=== PATIENT | male | born 1945 | race Caucasian/White ===

== ENCOUNTER 2017-09-19 16:23 | Inpatient (IN) | payer MEDICARE ==
[~2017-09-19] VITALS: Ht 185.4 cm; Wt 62.1 kg
--- NOTE | ~2017-09-19 | PN ---
PATIENT:SUZETTE QUIÑONES MEDICAL RECORD: [id number] [facility] DATE: 09/19/17 PROGRESS NOTE DATE OF SERVICE: 10/09/2017 SUBJECTIVE: This is a 72-year-old male who was admitted for increasing shortness of breath, felt to have a moderately large right pleural effusions. There is also some infiltrate. The patient's breathing has improved. He has no fever or chills. Gram stain pleural fluid is negative. LABORATORY DATA: CBC shows white count of 7.2, hemoglobin of 15. Chemistries remarkable for potassium 3.9. Chest x-ray shows significant improvement. No right pleural effusions. There is patchy and linear bibasilar opacities, which is mostly atelectasis. There is mild interstitial prominence. ASSESSMENT: 1. Right parapneumonic effusion. 2. Pneumonia. 3. . This is probably not from pancreatitis or carcinoma. There is no abdominal pain. This may be a benign process. PLAN: Continue antibiotics, total of 5-7 days on discharge from pulmonary standpoint. TRANSINT:[id number] Voice Confirmation ID: [id number] DOCUMENT ID: [id number] PAULA GAVIN at 0831 CC: [id number] DICTATION DATE: 10/09/17 1723 CORPORATE TRAVEL EXPERT: 10/10/17 0032 ADM IN [place] [address] [place] [address]
--- NOTE | ~2017-09-19 | EC ---
PATIENT:SUZETTE QUIÑONES DATE OF SERVICE: 09/19/17 SEX: M MEDICAL RECORD: [id number] DATE OF : [birth year] LOCATION:D.M2 D.210 AGE OF PATIENT: 72 ADMISSION DATE: 09/19/17 REFERRING PHYSICIAN: INTERPRETING PHYSICIAN: JULIET GILLIS MD ECHOCARDIOGRAM REPORT ECHO CHARGES 4 ECHO COMPLETE Date: 09/30 CLINICAL DIAGNOSIS: FLUID OVERLOAD ECHOCARDIOGRAPHIC MEASUREMENTS (adult normal given) AC root (d.<3.7cm) 2.9 cm LV Septum d (<1.2 cm> 1.2 cm Valve Excursion 1.5 cm LV Septum (systole) 1.5 cm Left Atria (s.<4.0cm> 3.5 cm LVPW d(<1.2cm) 1.2 cm RV (d.<2.3cm) 2.4 cm LVPW (sytole) 1.8 cm LV diastole(<5.6CM) 3.9 cm MV E-F(>70mm/sec) cm LV systole 2.5 cm LVOT Diameter 1.7 cm MV exc.(>10mm) 1.4 cm Est.ejection fraction (50-75%) % DOPPLER: LVIT cm/sec A 55.0 cm/sec E 51.0 cm/sec LA cm/sec RVSP 15.0 mmHg LVOT 78.0 cm/sec AOP1/2T m/s Asc. Ao 112 cm/sec RVOT 48.0 cm/sec RA cm/sec PA 69.0 cm/sec AV Gradient Peak 5.0 mmHg AV Mean 2.3 mmHg AV Area 1.6 cm MV Gradient Peak 3.3 mmHg MV Mean 0.97 mmHg MV Area cm COMMENTS: Senior Finance Manager: 1 PADMINI RATLIFF Social Worker Psychiatric: 2 Dr. Tobar TAPE# PACS Pericardial Effusion Y DATE OF SERVICE: 09/30/2017 PROCEDURE: Echocardiogram. FINDINGS: 1. Left ventricular chamber size is within normal limits. Left ventricular systolic function is normal. Overall ejection fraction estimated at 50%. 2. Left atrium, right atrium, and right ventricle chamber sizes are within normal limits. 3. Valvular structures have normal structure and motion. ECHOCARDIOGRAM REPORT [id number] SUZETTE QUIÑONES 4. Doppler interrogation only reveals trace mitral regurgitation, trace tricuspid regurgitation, no other valvular insufficiency or stenosis and pulmonary systolic pressure is normal estimated at 15 mmHg. 5. No evidence of pericardial effusion or left ventricular thrombus. TRANSINT:[id number] Voice Confirmation ID: [id number] DOCUMENT ID: [id number] JULIET GILLIS MD at 1713 CC: [id number] DICTATION DATE: 09/30/17 1207 PRINT OPERATOR: 09/30/17 1220 ADM IN [place] [id number] [place] [id number]
--- NOTE | ~2017-09-19 | PN ---
PATIENT:SUZETTE QUIÑONES MEDICAL RECORD: [id number] LOCATION:D. D.210 ADMISSION DATE: 09/19/17 PROGRESS NOTE DATE OF SERVICE: 10/08/2017 This is a 72-year-old man who has had a history of smoking and chronic obstructive pulmonary disease. This patient was admitted with increasing shortness of breath and was noted to have right pleural effusion as well as left infiltrates. The patient had thoracentesis today and it turned over 2 liters. The patient feels improved. There is no coughing. There is no hemoptysis. There is no fever or chills. The patient has been on antibiotics as well as bronchodilators. PHYSICAL EXAMINATION: GENERAL: Physical exam reveals an elderly man who is in no acute distress. VITAL SIGNS: Temperature 98.1, heart rate of 98, respiratory rate of 20, blood pressure 119/67. SHEENT: Unremarkable. NECK: Supple. There is adenopathy. Trachea is midline. There is no stridor. CHEST: There are some mild crackles, on the right. There is no chest wall tenderness. HEART: Exam shows no jugular venous distention, no murmur or gallops. ABDOMEN: Benign. EXTREMITIES: No clubbing, cyanosis or edema. LABORATORY DATA: White count 6.8, hemoglobin 14.4, and platelet count was 365. Arterial blood gases pH 7.36, pCO2 of 48, pO2 is 77, on 5 liters. Chemistry is remarkable for potassium 5, creatinine is 0.9. CT scan shows emphysematous lungs with atelectasis and has mucus in the bronchial tubes. ASSESSMENT: 1. Right pleural effusion, most likely parapneumonic effusion. 2. Pneumonia, community acquired. 3. Chronic obstructive pulmonary disease. PLAN: 1. Repeat chest x-ray in the morning. 2. Continue bronchodilators. 3. Mucolytics. 4. Encourage cough and expectoration. TRANSINT:[id number] Voice Confirmation ID: [id number] DOCUMENT ID: [id number] PROGRESS NOTE [id number] SUZETTE QUIÑONES PAULA GAVIN at 0831 CC: [id number] DICTATION DATE: 10/08/172024 IRRIGATOR SPRINKLING SYSTEM: 10/09/17 0106 ADM IN [place] [id number] [place] [address]
--- NOTE | ~2017-09-19 | PN ---
PATIENT:SUZETTE QUIÑONES MEDICAL RECORD: [id number] LOCATION:[facility] D.210 ADMISSION DATE: 09/19/17 PROGRESS NOTE DATE OF SERVICE: 10/07/2017 HISTORY OF PRESENT ILLNESS: This is a 72-year-old male who has a history of COPD, continues to smoke. The patient has had weight loss in the past weeks. He has also been weak. He was noted to have some shortness of breath, was seen in the Emergency Room and signed AMA. The patient returned with shortness of breath, was noted to have moderate right pleural effusion. Thoracentesis was done and there was no change. The patient has been coughing up some yellowish green sputum. Denies any fever or chills. PAST MEDICAL HISTORY: Includes hypertension, peripheral neuropathy, BPH, nicotine abuse, and medical noncompliance. The patient denies any chest pain, denies any shortness of breath. There is no fever or chills. PHYSICAL EXAMINATION: GENERAL: Reveals an elderly man who appears to be mildly cachectic. VITAL SIGNS: Temperature 97.9, heart rate 86, respiratory rate of 18, blood pressure 128/78, saturation 95%. SHEENT: The patient is normocephalic. The patient has poor dentition. NECK: Supple. Trachea is midline. CHEST: Reveals moderate coarse crackles on the left. Dullness in the right bases. HEART: Shows no jugular venous distention. ABDOMEN: Benign. EXTREMITIES: No clubbing, cyanosis or edema. LABORATORY DATA: Showed white count of 7.8, hemoglobin 14.4, platelet count is 289,000. Chemistries remarkable for potassium of 3.2, carbon dioxide 34. Albumin is 2.2. Lipase is 1789. Chest x-ray showed moderate pleural effusion suggestive of loculated pleural effusion. Pleural fluid Gram stain is negative for bacteria, few white cells. ASSESSMENT: 1. Right pleural effusion, most likely loculated. The patient may need a chest tube and pleural thrombolysis. 2. Chronic obstructive pulmonary disease, severe. Continue bronchodilators and medicine. 3. Elevated pancreatic enzymes. The patient does not appear to have any abdominal symptoms. This will need followed up. RECOMMENDATIONS: 1. Continue bronchodilators. 2. Small caliber chest tube insertion and thrombolysis. Streptokinase and DNase twice a day. Cessation of smoking. TRANSINT:[id number] Voice Confirmation ID: [id number] DOCUMENT ID: [id number] PROGRESS NOTE [id number] SUZETTE QUIÑONES AUGUSTINE K at 0831 CC: [id number] DICTATION DATE: 10/07/171908 ENVIRONMENTAL SERVICES AIDE: 10/08/17 0206 ADM IN [place] [address] [place] [address]
--- NOTE | ~2017-09-19 | EC ---
PATIENT:SUZETTE QUIÑONES DATE OF SERVICE: 09/19/17 SEX: M MEDICAL RECORD: [id number] DATE OF : 47 LOCATION:D.M2 D.210 AGE OF PATIENT: 72 ADMISSION DATE: 09/19/17 REFERRING PHYSICIAN: INTERPRETING PHYSICIAN: JULIET COLEMAN MD ECHOCARDIOGRAM REPORT ECHO CHARGES 5 ECHO LIMITED Date: 09/20 CLINICAL DIAGNOSIS: CHF ECHOCARDIOGRAPHIC MEASUREMENTS (adult normal given) AC root (d.<3.7cm) cm LV Septum d (<1.2 cm> 1.7 cm Valve Excursion cm LV Septum (systole) 1.8 cm Left Atria (s.<4.0cm> cm LVPW d(<1.2cm) 1.6 cm RV (d.<2.3cm) 2.8 cm LVPW (sytole) 1.8 cm LV diastole(<5.6CM) 4.4 cm MV E-F(>70mm/sec) cm LV systole 2.9 cm LVOT Diameter cm MV exc.(>10mm) 1.4 cm Est.ejection fraction (50-75%) % DOPPLER: LVIT cm/sec A 102 cm/sec E 75.0 cm/sec LA cm/sec RVSP mmHg LVOT cm/sec AOP1/2T m/s Asc. Ao cm/sec RVOT cm/sec RA cm/sec PA cm/sec AV Gradient Peak mmHg AV Mean mmHg AV Area cm MV Gradient Peak mmHg MV Mean mmHg MV Area cm COMMENTS: Negative Notcher: Dilip RUSSELL Guest Services Representative: Starla Coleman TAPE# PACS Pericardial Effusion N DATE OF SERVICE: 09/20/2017 PROCEDURE: Echocardiogram FINDINGS: 1. Left ventricle chamber size is within normal limits. Left ventricular systolic function is normal. Overall ejection fraction is estimated at 60%. 2. Left atrium, right atrium, and right ventricle chamber sizes are within normal limits. 3. Valvular structures have normal structure and motion. ECHOCARDIOGRAM REPORT [id number] SUZETTE QUIÑONES 4. Doppler interrogation reveals no significant valvular insufficiency or stenosis. 5. No evidence of pericardial effusion or left ventricular thrombus. TRANSINT:[id number] Voice Confirmation ID: [id number] DOCUMENT ID: [id number] JULIET COLEMAN MD at 1325 CC: [id number] DICTATION DATE: 09/20/17 1637 CAPTION WRITER: 09/20/17 1825 ADM IN [facility] [address] [place] [id number]
[2017-09-19] MEDS ORDERED: NEURONTIN 300300 MG (16:29)
[2017-09-19] MEDS ORDERED: TOPROL XL50 MG (16:30)
[2017-09-19 16:50] VITALS: BP 135/86
[2017-09-19 17:00] VITALS: BP 144/80
[2017-09-19 17:18] LABS: HEMATOCRIT 54.7 % (42.0-54.0); HEMOGLOBIN 18.6 g/dL (13.5-17.5); LYMPHOCYTES 17.8 % (15-50); MCH 30.3 pg (26.0-34.0); MCV 89.2 fL (80.0-100.0); MEAN PLATELET VOLUME 8.7 fL (7.4-10.4); NEUTROPHILS 75.1 % (40-80); PLATELET COUNT 323 10x3/uL (130-400); RBC 6.13 10x6/uL (4.20-6.10); RDW 13.3 % (11.5-14.5)
[2017-09-19 17:30] VITALS: BP 133/77
[2017-09-19 17:31] LABS: APTT 32.4 SECONDS (22.8-39.4)
[2017-09-19 17:32] LABS: D-DIMER-QUANTITATIVE 0.83 ug/mLFEU (0.20-0.54); INR 0.96 (0.85-1.17); PROTIME 12.4 SECONDS (11.6-15.0)
[2017-09-19 17:41] LABS: ALBUMIN 3.4 g/dL (3.4-5.0); ALKALINE PHOSPHATASE 138 U/L (46-116); ALT (SGPT) 22 U/L (10-68); BILIRUBIN - TOTAL 0.63 mg/dL (0.2-1.3); CALC OSMOLALITY 277 mosm/kg (275-300); CHLORIDE - SERUM 100 mmol/L (98-107); CREATININE - SERUM 1.4 mg/dL (0.6-1.3); GLUCOSE 120 mg/dL (74-106); POTASSIUM - SERUM 4.1 mmol/L (3.5-5.1); PROTEIN - SERUM 8.1 g/dL (6.4-8.2); SODIUM 138 mmol/L (136-145); UREA NITROGEN 16 mg/dL (7-18); eGFR NON AFRICAN AMERICAN 53 mL/min (90-120)
[2017-09-19 17:56] LABS: CKMB 1.7 U/L (0.0-3.6); CREATINE KINASE 63 UL (21-232); PRO BNP 487 pg/mL (0-125)
[2017-09-19 17:58] LABS: TROPONIN-I < 0.017 ng/mL (0.000-0.060)
[2017-09-19 18:15] VITALS: BP 144/80
[2017-09-19 19:00] VITALS: BP 128/78
[2017-09-19] MEDS ORDERED: OMEPRAZOLE20 M1 PO (19:45)
[2017-09-19] MEDS ORDERED: REQUIP0.25 MG PO (19:45)
[2017-09-19] MEDS ORDERED: PRAVACHOL20 MG PO (19:45)
[2017-09-19] MEDS ORDERED: METOPROLOL TART50 MG PO (19:46)
[2017-09-19] MEDS ORDERED: HYZAAR 50-12.51 TAB PO (19:46)
[2017-09-19] MEDS ORDERED: PROSCAR5 MG PO (19:47)
[2017-09-19] MEDS ORDERED: BAYER CHEWABLE81 MG PO (19:47)
[2017-09-19] MEDS ORDERED: NIFEDIPINE ER60 MG PO (19:47)
[2017-09-19] MEDS ORDERED: NEURONTIN600 MG PO (19:47)
[2017-09-19 21:39] VITALS: BP 112/79
[2017-09-20 01:29] VITALS: BP 122/74
[2017-09-20 08:03] VITALS: BP 146/77
[2017-09-20 11:55] VITALS: BP 148/87
[2017-09-20 12:16] VITALS: BMI 18.7
[2017-09-20 15:39] VITALS: BP 157/94
[2017-09-20 20:31] VITALS: BP 146/88
[2017-09-21 01:10] VITALS: BP 142/86
[2017-09-21 04:00] VITALS: BP 139/88
[2017-09-21 05:05] LABS: PRE-ALBUMIN 16.3 mg/dL (18.0-35.7)
[2017-09-21 05:07] LABS: PROTEIN - SERUM 5.3 g/dL (6.4-8.2)
[2017-09-21 08:05] VITALS: BP 127/77
[2017-09-21 09:31] LABS: BASOPHILS 0.2 % (0-2); EOSINOPHILS 0.8 % (0-7); HEMATOCRIT 48.3 % (42.0-54.0); HEMOGLOBIN 16.4 g/dL (13.5-17.5); IMMATURE GRANULOCYTES 0.4 % (0-5); MCH 30.9 pg (26.0-34.0); MCV 91.1 fL (80.0-100.0); MEAN PLATELET VOLUME 9.8 fL (7.4-10.4); MONOCYTES 6.1 % (2-11); NEUTROPHILS 82.5 % (40-80); RDW 13.4 % (11.5-14.5); WBC 9.5 10x3/uL (4.8-10.8)
[2017-09-21 09:35] LABS: PLATELET COUNT 243 10x3/uL (130-400)
[2017-09-21 09:50] LABS: ALBUMIN 2.2 g/dL (3.4-5.0); ALKALINE PHOSPHATASE 70 U/L (46-116); ALT (SGPT) 13 U/L (10-68); BILIRUBIN - TOTAL 0.34 mg/dL (0.2-1.3); CALC OSMOLALITY 282 mosm/kg (275-300); CARBON DIOXIDE 21.4 mmol/L (21.0-32.0); CHLORIDE - SERUM 110 mmol/L (98-107); CREATININE - SERUM 0.8 mg/dL (0.6-1.3); GLUCOSE 84 mg/dL (74-106); LIPASE 3683 U/L (73-393); POTASSIUM - SERUM 3.1 mmol/L (3.5-5.1); PROTEIN - SERUM 4.6 g/dL (6.4-8.2); SODIUM 142 mmol/L (136-145); UREA NITROGEN 14 mg/dL (7-18); eGFR NON AFRICAN AMERICAN > 90 mL/min (90-120)
[2017-09-21 09:55] LABS: AMYLASE - SERUM 713 U/L (25-115)
[2017-09-21 11:41] VITALS: BP 113/73
[2017-09-21 13:40] VITALS: Ht 185.4 cm; Wt 62.1 kg
[2017-09-21 16:14] VITALS: BP 100/64
[2017-09-21 21:26] VITALS: BP 101/60
[2017-09-22] VITALS (13 sets, daily range): BP systolic 92–112; BP diastolic 52–66
[2017-09-22 05:23] LABS: BASOPHILS 0.3 % (0-2); EOSINOPHILS 2.4 % (0-7); HEMATOCRIT 46.7 % (42.0-54.0); HEMOGLOBIN 15.7 g/dL (13.5-17.5); IMMATURE GRANULOCYTES 0.5 % (0-5); LYMPHOCYTES 12.9 % (15-50); MCH 30.8 pg (26.0-34.0); MCHC 33.6 g/dL (31.0-37.0); MCV 91.6 fL (80.0-100.0); MEAN PLATELET VOLUME 9.5 fL (7.4-10.4); MONOCYTES 8.1 % (2-11); NEUTROPHILS 75.8 % (40-80); PLATELET COUNT 229 10x3/uL (130-400); RDW 13.6 % (11.5-14.5); WBC 11.1 10x3/uL (4.8-10.8)
[2017-09-22 05:33] LABS: APTT 30.9 SECONDS (22.8-39.4); INR 1.2 (0.85-1.17); PROTIME 14.8 SECONDS (11.6-15.0)
[2017-09-22 05:43] LABS: ALBUMIN 2.3 g/dL (3.4-5.0); ANION GAP 13.8 mmol/L (8-16); BILIRUBIN - TOTAL 0.59 mg/dL (0.2-1.3); CALCIUM 8.4 mg/dL (8.5-10.1); CARBON DIOXIDE 24.6 mmol/L (21.0-32.0); MAGNESIUM - SERUM 1.8 mg/dL (1.8-2.4); PHOSPHOROUS 3.5 mg/dL (2.5-4.9); POTASSIUM - SERUM 3.4 mmol/L (3.5-5.1)
[2017-09-22 05:54] LABS: CREATININE - SERUM 1.1 mg/dL (0.6-1.3); PROTEIN - SERUM 5.9 g/dL (6.4-8.2)
[2017-09-22 13:56] LABS: PROTEIN - BODY FLUID 4.4 G/DL
[2017-09-22 14:31] LABS: MACROPHAGES BF 63 %; MESOTHELIALS BF 4 %; NEUT - BF 5 %
[2017-09-23 00:41] VITALS: BP 112/68
[2017-09-23 03:28] LABS: BASOPHILS 0.3 % (0-2); HEMATOCRIT 43.5 % (42.0-54.0); HEMOGLOBIN 14.3 g/dL (13.5-17.5); IMMATURE GRANULOCYTES 0.4 % (0-5); LYMPHOCYTES 12.8 % (15-50); MCH 30.4 pg (26.0-34.0); MCHC 32.9 g/dL (31.0-37.0); MCV 92.6 fL (80.0-100.0); MEAN PLATELET VOLUME 9.6 fL (7.4-10.4); MONOCYTES 8.8 % (2-11); NEUTROPHILS 74.7 % (40-80); PLATELET COUNT 193 10x3/uL (130-400); RDW 13.7 % (11.5-14.5)
[2017-09-23 04:09] LABS: ALBUMIN 2.1 g/dL (3.4-5.0); ANION GAP 11.4 mmol/L (8-16); BILIRUBIN - TOTAL 0.42 mg/dL (0.2-1.3); CALCIUM 8.1 mg/dL (8.5-10.1); CARBON DIOXIDE 23.9 mmol/L (21.0-32.0); CREATININE - SERUM 1.1 mg/dL (0.6-1.3); POTASSIUM - SERUM 3.3 mmol/L (3.5-5.1); PROTEIN - SERUM 5.5 g/dL (6.4-8.2)
[2017-09-23 05:34] VITALS: BP 111/60
[2017-09-23 07:56] VITALS: BP 125/71
[2017-09-23 10:36] VITALS: BP 128/66
[2017-09-23 15:18] VITALS: BP 131/72
[2017-09-23 20:00] VITALS: BP 143/78
[2017-09-23 23:28] LABS: APPEARANCE CLEAR (CLEAR); BILIRUBIN NEGATIVE (NEGATIVE); COLOR DK YELLOW (YELLOW); GLUCOSE NEGATIVE (NEGATIVE); KETONE NEGATIVE (NEGATIVE); NITRITE NEGATIVE (NEGATIVE); PROTEIN 1+ mg/dL (NEGATIVE); SPECIFIC GRAVITY 1.015 (1.005-1.020); UROBILINOGEN NORMAL (NORMAL)
[2017-09-23 23:29] LABS: BACTERIA NONE SEEN /hpf (NONE SEEN); EPITHELIAL CELLS 0-5 /hpf (0-5); RED CELLS - URINE 0-5 /hpf (0-5); WHITE CELLS - URINE 0-5 /hpf (0-5)
[2017-09-24 04:00] VITALS: BP 116/62
[2017-09-24 06:46] LABS: BASOPHILS 0.2 % (0-2); EOSINOPHILS 3.5 % (0-7); HEMATOCRIT 43.9 % (42.0-54.0); HEMOGLOBIN 14.8 g/dL (13.5-17.5); IMMATURE GRANULOCYTES 0.3 % (0-5); LYMPHOCYTES 9.5 % (15-50); MCH 31.4 pg (26.0-34.0); MCHC 33.7 g/dL (31.0-37.0); MCV 93.2 fL (80.0-100.0); MEAN PLATELET VOLUME 9.9 fL (7.4-10.4); MONOCYTES 7.7 % (2-11); NEUTROPHILS 78.8 % (40-80); PLATELET COUNT 216 10x3/uL (130-400); RBC 4.71 10x6/uL (4.20-6.10); RDW 13.7 % (11.5-14.5); WBC 9.9 10x3/uL (4.8-10.8)
[2017-09-24 07:06] LABS: ALBUMIN 2.1 g/dL (3.4-5.0); ALKALINE PHOSPHATASE 78 U/L (46-116); BILIRUBIN - TOTAL 0.64 mg/dL (0.2-1.3); CALCIUM 8.5 mg/dL (8.5-10.1); CARBON DIOXIDE 26.3 mmol/L (21.0-32.0); CHLORIDE - SERUM 107 mmol/L (98-107); PROTEIN - SERUM 5.7 g/dL (6.4-8.2); SODIUM 140 mmol/L (136-145); eGFR NON AFRICAN AMERICAN 78 mL/min (90-120)
[2017-09-24 07:10] LABS: ALT (SGPT) 20 U/L (10-68); CALC OSMOLALITY 278 mosm/kg (275-300); GLUCOSE 97 mg/dL (74-106); LIPASE 2681 U/L (73-393); UREA NITROGEN 12 mg/dL (7-18)
[2017-09-24 08:34] VITALS: BP 109/72
[2017-09-24 12:38] VITALS: BP 119/67
[2017-09-24 16:07] VITALS: BP 114/70
[2017-09-24 16:23] LABS: AFB SPECIMEN PROCESSING Not Indicated (())
[2017-09-24 20:00] VITALS: BP 140/74
[2017-09-25] VITALS: BP 123/67
[2017-09-25 04:00] VITALS: BP 118/68
[2017-09-25 06:35] LABS: BASOPHILS 0.2 % (0-2); EOSINOPHILS 3.5 % (0-7); HEMATOCRIT 43.6 % (42.0-54.0); HEMOGLOBIN 14.5 g/dL (13.5-17.5); IMMATURE GRANULOCYTES 0.4 % (0-5); LYMPHOCYTES 9.1 % (15-50); MCH 31.1 pg (26.0-34.0); MCHC 33.3 g/dL (31.0-37.0); MCV 93.6 fL (80.0-100.0); MONOCYTES 8.1 % (2-11); NEUTROPHILS 78.7 % (40-80); PLATELET COUNT 257 10x3/uL (130-400); RBC 4.66 10x6/uL (4.20-6.10)
[2017-09-25 07:36] LABS: ALBUMIN 2.1 g/dL (3.4-5.0); ALKALINE PHOSPHATASE 88 U/L (46-116); ALT (SGPT) 20 U/L (10-68); CALC OSMOLALITY 278 mosm/kg (275-300); CALCIUM 8.7 mg/dL (8.5-10.1); CARBON DIOXIDE 26.6 mmol/L (21.0-32.0); CHLORIDE - SERUM 107 mmol/L (98-107); CREATININE - SERUM 0.9 mg/dL (0.6-1.3); GLUCOSE 125 mg/dL (74-106); LIPASE 4421 U/L (73-393); POTASSIUM - SERUM 4.2 mmol/L (3.5-5.1); PROTEIN - SERUM 5.7 g/dL (6.4-8.2); SODIUM 140 mmol/L (136-145); UREA NITROGEN 10 mg/dL (7-18); eGFR NON AFRICAN AMERICAN 88 mL/min (90-120)
[2017-09-25 08:36] VITALS: BP 123/65
[2017-09-25 12:39] VITALS: BP 133/77
[2017-09-25 13:21] LABS: ANA REFLEX - DIRECT Negative (Negative)
[2017-09-25 15:31] LABS: FUNGUS STAIN Final report (())
[2017-09-25 16:39] VITALS: BP 136/86
[2017-09-25 20:00] VITALS: BP 148/86
[2017-09-26] VITALS: BP 129/75
[2017-09-26 04:00] VITALS: BP 136/76
[2017-09-26 06:01] LABS: BASOPHILS 0.2 % (0-2); EOSINOPHILS 4.3 % (0-7); HEMATOCRIT 44.4 % (42.0-54.0); HEMOGLOBIN 14.7 g/dL (13.5-17.5); IMMATURE GRANULOCYTES 0.4 % (0-5); LYMPHOCYTES 10.3 % (15-50); MCH 30.9 pg (26.0-34.0); MCHC 33.1 g/dL (31.0-37.0); MCV 93.3 fL (80.0-100.0); MEAN PLATELET VOLUME 9.5 fL (7.4-10.4); MONOCYTES 9.2 % (2-11); NEUTROPHILS 75.6 % (40-80); PLATELET COUNT 250 10x3/uL (130-400); RBC 4.76 10x6/uL (4.20-6.10); RDW 13.8 % (11.5-14.5); WBC 9.7 10x3/uL (4.8-10.8)
[2017-09-26 06:28] LABS: ALBUMIN 2.1 g/dL (3.4-5.0); ALKALINE PHOSPHATASE 99 U/L (46-116); ALT (SGPT) 19 U/L (10-68); BILIRUBIN - TOTAL 0.84 mg/dL (0.2-1.3); CALC OSMOLALITY 277 mosm/kg (275-300); CALCIUM 9.1 mg/dL (8.5-10.1); CARBON DIOXIDE 27.8 mmol/L (21.0-32.0); CHLORIDE - SERUM 105 mmol/L (98-107); CREATININE - SERUM 0.8 mg/dL (0.6-1.3); GLUCOSE 102 mg/dL (74-106); PROTEIN - SERUM 6.1 g/dL (6.4-8.2); SODIUM 140 mmol/L (136-145); UREA NITROGEN 10 mg/dL (7-18); eGFR NON AFRICAN AMERICAN > 90 mL/min (90-120)
[2017-09-26 06:31] LABS: LIPASE 4059 U/L (73-393)
[2017-09-26 08:17] VITALS: BP 157/90
[2017-09-26 11:56] VITALS: BP 158/93
[2017-09-26 15:33] VITALS: BP 155/85
[2017-09-26 21:09] VITALS: BP 139/81
[2017-09-27 01:28] VITALS: BP 145/89
[2017-09-27 05:19] LABS: BASOPHILS 0.2 % (0-2); EOSINOPHILS 3.4 % (0-7); HEMATOCRIT 45.4 % (42.0-54.0); HEMOGLOBIN 15.1 g/dL (13.5-17.5); IMMATURE GRANULOCYTES 0.7 % (0-5); LYMPHOCYTES 9.6 % (15-50); MCH 30.6 pg (26.0-34.0); MCHC 33.3 g/dL (31.0-37.0); MCV 91.9 fL (80.0-100.0); MEAN PLATELET VOLUME 9.5 fL (7.4-10.4); NEUTROPHILS 76.1 % (40-80); PLATELET COUNT 264 10x3/uL (130-400); RBC 4.94 10x6/uL (4.20-6.10); RDW 13.5 % (11.5-14.5); WBC 9.8 10x3/uL (4.8-10.8)
[2017-09-27 05:34] LABS: ALBUMIN 2.1 g/dL (3.4-5.0); ALKALINE PHOSPHATASE 93 U/L (46-116); ALT (SGPT) 15 U/L (10-68); BILIRUBIN - TOTAL 0.63 mg/dL (0.2-1.3); CALC OSMOLALITY 271 mosm/kg (275-300); CALCIUM 9.2 mg/dL (8.5-10.1); CHLORIDE - SERUM 104 mmol/L (98-107); CREATININE - SERUM 0.8 mg/dL (0.6-1.3); GLUCOSE 111 mg/dL (74-106); POTASSIUM - SERUM 3.7 mmol/L (3.5-5.1); PROTEIN - SERUM 6.3 g/dL (6.4-8.2); SODIUM 136 mmol/L (136-145); UREA NITROGEN 10 mg/dL (7-18); eGFR NON AFRICAN AMERICAN > 90 mL/min (90-120)
[2017-09-27 05:35] LABS: LIPASE 3195 U/L (73-393)
[2017-09-27 05:39] VITALS: BP 148/88
[2017-09-27 08:16] VITALS: BP 154/88
[2017-09-27 11:25] VITALS: BP 133/73
[2017-09-27 15:31] VITALS: BP 122/76
[2017-09-27 20:00] VITALS: BP 131/70
[2017-09-28 04:00] VITALS: BP 128/68
[2017-09-28 08:57] VITALS: BP 132/71
[2017-09-28 11:51] VITALS: BP 146/89
[2017-09-28 15:51] VITALS: BP 150/95
[2017-09-28 20:00] VITALS: BP 155/94
[2017-09-29 04:00] VITALS: BP 153/89
[2017-09-29 08:55] VITALS: BP 140/87
[2017-09-29 10:23] LABS: BASOPHILS 0.5 % (0-2); EOSINOPHILS 3.6 % (0-7); HEMATOCRIT 44.2 % (42.0-54.0); HEMOGLOBIN 14.8 g/dL (13.5-17.5); IMMATURE GRANULOCYTES 0.8 % (0-5); LYMPHOCYTES 8.2 % (15-50); MCH 30.9 pg (26.0-34.0); MCHC 33.5 g/dL (31.0-37.0); MCV 92.3 fL (80.0-100.0); MEAN PLATELET VOLUME 9.8 fL (7.4-10.4); MONOCYTES 12.6 % (2-11); NEUTROPHILS 74.3 % (40-80); PLATELET COUNT 295 10x3/uL (130-400); RBC 4.79 10x6/uL (4.20-6.10); RDW 13.3 % (11.5-14.5); WBC 10.1 10x3/uL (4.8-10.8)
[2017-09-29 10:35] LABS: ALBUMIN 2.1 g/dL (3.4-5.0); ALKALINE PHOSPHATASE 105 U/L (46-116); ALT (SGPT) 16 U/L (10-68); BILIRUBIN - TOTAL 0.45 mg/dL (0.2-1.3); CALC OSMOLALITY 271 mosm/kg (275-300); CALCIUM 9.4 mg/dL (8.5-10.1); CARBON DIOXIDE 20.2 mmol/L (21.0-32.0); CHLORIDE - SERUM 104 mmol/L (98-107); CREATININE - SERUM 0.8 mg/dL (0.6-1.3); GLUCOSE 87 mg/dL (74-106); POTASSIUM - SERUM 3.9 mmol/L (3.5-5.1); PROTEIN - SERUM 6.4 g/dL (6.4-8.2); SODIUM 137 mmol/L (136-145); UREA NITROGEN 11 mg/dL (7-18); eGFR NON AFRICAN AMERICAN > 90 mL/min (90-120)
[2017-09-29 16:02] VITALS: BP 153/84
[2017-09-29 20:15] VITALS: BP 142/77
[2017-09-30 00:05] VITALS: BP 129/72
[2017-09-30 05:09] LABS: BASOPHILS 0.5 % (0-2); EOSINOPHILS 4.7 % (0-7); HEMATOCRIT 44.4 % (42.0-54.0); HEMOGLOBIN 15.1 g/dL (13.5-17.5); IMMATURE GRANULOCYTES 1.6 % (0-5); LYMPHOCYTES 12.9 % (15-50); MCH 30.9 pg (26.0-34.0); MEAN PLATELET VOLUME 9.4 fL (7.4-10.4); MONOCYTES 12.9 % (2-11); NEUTROPHILS 67.4 % (40-80); PLATELET COUNT 274 10x3/uL (130-400); RBC 4.88 10x6/uL (4.20-6.10); RDW 13.4 % (11.5-14.5); WBC 8.2 10x3/uL (4.8-10.8)
[2017-09-30 05:25] VITALS: BP 133/72
[2017-09-30 05:45] LABS: CALC OSMOLALITY 273 mosm/kg (275-300); CALCIUM 9.7 mg/dL (8.5-10.1); CARBON DIOXIDE 26.3 mmol/L (21.0-32.0); CHLORIDE - SERUM 103 mmol/L (98-107); CREATININE - SERUM 0.7 mg/dL (0.6-1.3); GLUCOSE 89 mg/dL (74-106); LIPASE 2106 U/L (73-393); POTASSIUM - SERUM 3.6 mmol/L (3.5-5.1); SODIUM 137 mmol/L (136-145); UREA NITROGEN 14 mg/dL (7-18); eGFR NON AFRICAN AMERICAN > 90 mL/min (90-120)
[2017-09-30 08:46] VITALS: BP 122/80
[2017-09-30 12:06] VITALS: BP 126/84
[2017-09-30 16:20] VITALS: BP 124/79
[2017-09-30 20:05] VITALS: BP 154/97
[2017-10-01 01:29] VITALS: BP 144/84
[2017-10-01 05:35] VITALS: BP 140/86
[2017-10-01 05:58] LABS: BASOPHILS 0.5 % (0-2); EOSINOPHILS 4.2 % (0-7); HEMATOCRIT 44.5 % (42.0-54.0); HEMOGLOBIN 15.2 g/dL (13.5-17.5); IMMATURE GRANULOCYTES 1.4 % (0-5); LYMPHOCYTES 11.1 % (15-50); MCH 31.1 pg (26.0-34.0); MCHC 34.2 g/dL (31.0-37.0); MEAN PLATELET VOLUME 9.3 fL (7.4-10.4); NEUTROPHILS 71.8 % (40-80); PLATELET COUNT 266 10x3/uL (130-400); RBC 4.89 10x6/uL (4.20-6.10); RDW 13.5 % (11.5-14.5); WBC 8.6 10x3/uL (4.8-10.8)
[2017-10-01 06:26] LABS: CALC OSMOLALITY 277 mosm/kg (275-300); CARBON DIOXIDE 29.6 mmol/L (21.0-32.0); CHLORIDE - SERUM 104 mmol/L (98-107); CREATININE - SERUM 0.8 mg/dL (0.6-1.3); GLUCOSE 98 mg/dL (74-106); POTASSIUM - SERUM 3.2 mmol/L (3.5-5.1); SODIUM 139 mmol/L (136-145); UREA NITROGEN 13 mg/dL (7-18); eGFR NON AFRICAN AMERICAN > 90 mL/min (90-120)
[2017-10-01 06:28] LABS: LIPASE 2184 U/L (73-393)
[2017-10-01 08:27] VITALS: BP 139/76
[2017-10-01 11:36] VITALS: BP 143/85
[2017-10-01 20:30] VITALS: BP 156/85
[2017-10-02 01:26] VITALS: BP 135/88
[2017-10-02 05:39] VITALS: BP 148/88
[2017-10-02 05:57] LABS: BASOPHILS 0.3 % (0-2); EOSINOPHILS 3.7 % (0-7); HEMATOCRIT 44.8 % (42.0-54.0); IMMATURE GRANULOCYTES 1.3 % (0-5); LYMPHOCYTES 11.9 % (15-50); MCH 30.4 pg (26.0-34.0); MCHC 33.5 g/dL (31.0-37.0); MCV 90.9 fL (80.0-100.0); MEAN PLATELET VOLUME 9.4 fL (7.4-10.4); MONOCYTES 9.3 % (2-11); NEUTROPHILS 73.5 % (40-80); PLATELET COUNT 281 10x3/uL (130-400); RBC 4.93 10x6/uL (4.20-6.10); RDW 13.5 % (11.5-14.5); WBC 9.2 10x3/uL (4.8-10.8)
[2017-10-02 06:23] LABS: CALC OSMOLALITY 277 mosm/kg (275-300); CALCIUM 9.2 mg/dL (8.5-10.1); CHLORIDE - SERUM 105 mmol/L (98-107); CREATININE - SERUM 0.7 mg/dL (0.6-1.3); GLUCOSE 103 mg/dL (74-106); POTASSIUM - SERUM 3.4 mmol/L (3.5-5.1); SODIUM 139 mmol/L (136-145); UREA NITROGEN 12 mg/dL (7-18); eGFR NON AFRICAN AMERICAN > 90 mL/min (90-120)
[2017-10-02 06:44] LABS: LIPASE 2391 U/L (73-393)
[2017-10-02 07:45] VITALS: BP 133/72
[2017-10-02 11:22] VITALS: BP 135/85
[2017-10-02 15:40] VITALS: BP 138/78
[2017-10-02 20:17] VITALS: BP 132/82
[2017-10-03 00:58] VITALS: BP 149/83
[2017-10-03 05:16] VITALS: BP 163/94
[2017-10-03 05:17] LABS: BASOPHILS 0.3 % (0-2); EOSINOPHILS 4.8 % (0-7); HEMATOCRIT 42.9 % (42.0-54.0); HEMOGLOBIN 14.5 g/dL (13.5-17.5); IMMATURE GRANULOCYTES 1.3 % (0-5); LYMPHOCYTES 14.3 % (15-50); MCH 30.8 pg (26.0-34.0); MCHC 33.8 g/dL (31.0-37.0); MCV 91.1 fL (80.0-100.0); MEAN PLATELET VOLUME 9.2 fL (7.4-10.4); MONOCYTES 10.2 % (2-11); NEUTROPHILS 69.1 % (40-80); PLATELET COUNT 272 10x3/uL (130-400); RBC 4.71 10x6/uL (4.20-6.10); RDW 13.4 % (11.5-14.5); WBC 8.6 10x3/uL (4.8-10.8)
[2017-10-03 05:39] LABS: CALC OSMOLALITY 276 mosm/kg (275-300); CALCIUM 8.9 mg/dL (8.5-10.1); CARBON DIOXIDE 28.8 mmol/L (21.0-32.0); CHLORIDE - SERUM 105 mmol/L (98-107); CREATININE - SERUM 0.8 mg/dL (0.6-1.3); GLUCOSE 97 mg/dL (74-106); POTASSIUM - SERUM 3.3 mmol/L (3.5-5.1); SODIUM 140 mmol/L (136-145); eGFR NON AFRICAN AMERICAN > 90 mL/min (90-120)
[2017-10-03 05:40] LABS: LIPASE 2199 U/L (73-393); UREA NITROGEN 8 mg/dL (7-18)
[2017-10-03 07:41] VITALS: BP 129/80
[2017-10-03 11:36] VITALS: BP 166/79
[2017-10-03 16:08] VITALS: BP 144/88
[2017-10-03 20:00] VITALS: BP 155/87
[2017-10-04 04:00] VITALS: BP 134/77
[2017-10-04 05:21] LABS: BASOPHILS 0.3 % (0-2); EOSINOPHILS 4.3 % (0-7); HEMATOCRIT 45.2 % (42.0-54.0); LYMPHOCYTES 12.9 % (15-50); MCH 30.6 pg (26.0-34.0); MCHC 33.2 g/dL (31.0-37.0); MCV 92.2 fL (80.0-100.0); MEAN PLATELET VOLUME 9.5 fL (7.4-10.4); MONOCYTES 9.2 % (2-11); NEUTROPHILS 72.3 % (40-80); PLATELET COUNT 323 10x3/uL (130-400); RDW 13.4 % (11.5-14.5); WBC 9.3 10x3/uL (4.8-10.8)
[2017-10-04 05:38] LABS: CALC OSMOLALITY 276 mosm/kg (275-300); CALCIUM 9.2 mg/dL (8.5-10.1); CARBON DIOXIDE 28.2 mmol/L (21.0-32.0); CHLORIDE - SERUM 106 mmol/L (98-107); CREATININE - SERUM 0.8 mg/dL (0.6-1.3); GLUCOSE 100 mg/dL (74-106); SODIUM 140 mmol/L (136-145); UREA NITROGEN 8 mg/dL (7-18); eGFR NON AFRICAN AMERICAN > 90 mL/min (90-120)
[2017-10-04 05:43] LABS: POTASSIUM - SERUM 3.9 mmol/L (3.5-5.1)
[2017-10-04 07:38] VITALS: BP 143/85
[2017-10-04 11:18] VITALS: BP 128/86
[2017-10-04 15:45] VITALS: BP 159/89
[2017-10-04 20:32] VITALS: BP 153/104
[2017-10-05 00:19] VITALS: BP 163/98
[2017-10-05 04:44] VITALS: BP 140/83
[2017-10-05 05:58] LABS: BASOPHILS 0.2 % (0-2); EOSINOPHILS 4.4 % (0-7); HEMATOCRIT 44.1 % (42.0-54.0); HEMOGLOBIN 14.6 g/dL (13.5-17.5); IMMATURE GRANULOCYTES 1.2 % (0-5); LYMPHOCYTES 14.8 % (15-50); MCH 30.5 pg (26.0-34.0); MCHC 33.1 g/dL (31.0-37.0); MCV 92.1 fL (80.0-100.0); MEAN PLATELET VOLUME 9.7 fL (7.4-10.4); MONOCYTES 10.3 % (2-11); NEUTROPHILS 69.1 % (40-80); PLATELET COUNT 304 10x3/uL (130-400); RBC 4.79 10x6/uL (4.20-6.10); RDW 13.3 % (11.5-14.5); WBC 8.4 10x3/uL (4.8-10.8)
[2017-10-05 06:34] LABS: ALBUMIN 2.1 g/dL (3.4-5.0); ALKALINE PHOSPHATASE 95 U/L (46-116); ALT (SGPT) 14 U/L (10-68); BILIRUBIN - TOTAL 0.32 mg/dL (0.2-1.3); CALC OSMOLALITY 275 mosm/kg (275-300); CALCIUM 9.4 mg/dL (8.5-10.1); CHLORIDE - SERUM 105 mmol/L (98-107); CREATININE - SERUM 0.8 mg/dL (0.6-1.3); GLUCOSE 100 mg/dL (74-106); PROTEIN - SERUM 6.3 g/dL (6.4-8.2); SODIUM 139 mmol/L (136-145); UREA NITROGEN 7 mg/dL (7-18); eGFR NON AFRICAN AMERICAN > 90 mL/min (90-120)
[2017-10-05 06:38] LABS: LIPASE 1888 U/L (73-393); POTASSIUM - SERUM 4.7 mmol/L (3.5-5.1)
[2017-10-05 08:30] VITALS: BP 138/82
[2017-10-05 11:23] LABS: CKMB 1.2 U/L (0.0-3.6); CREATINE KINASE 38 UL (21-232)
[2017-10-05 11:24] LABS: TROPONIN-I < 0.017 ng/mL (0.000-0.060)
[2017-10-05 11:36] VITALS: BP 179/103
[2017-10-05 15:26] VITALS: BP 147/94
[2017-10-05 16:26] LABS: CKMB 1.1 U/L (0.0-3.6); CREATINE KINASE 22 UL (21-232)
[2017-10-05 16:28] LABS: TROPONIN-I < 0.017 ng/mL (0.000-0.060)
[2017-10-05 20:57] VITALS: BP 112/66
[2017-10-05 23:56] LABS: CKMB 0.9 U/L (0.0-3.6); CREATINE KINASE 25 UL (21-232); TROPONIN-I < 0.017 ng/mL (0.000-0.060)
[2017-10-06 04:52] LABS: BASOPHILS 0.4 % (0-2); EOSINOPHILS 3.4 % (0-7); HEMATOCRIT 42.8 % (42.0-54.0); HEMOGLOBIN 14.1 g/dL (13.5-17.5); IMMATURE GRANULOCYTES 0.9 % (0-5); LYMPHOCYTES 15.6 % (15-50); MCH 30.1 pg (26.0-34.0); MCHC 32.9 g/dL (31.0-37.0); MCV 91.5 fL (80.0-100.0); MEAN PLATELET VOLUME 9.7 fL (7.4-10.4); MONOCYTES 9.3 % (2-11); NEUTROPHILS 70.4 % (40-80); PLATELET COUNT 333 10x3/uL (130-400); RBC 4.68 10x6/uL (4.20-6.10); RDW 13.2 % (11.5-14.5); WBC 7.6 10x3/uL (4.8-10.8)
[2017-10-06 05:03] LABS: ALKALINE PHOSPHATASE 92 U/L (46-116); ALT (SGPT) 13 U/L (10-68); BILIRUBIN - TOTAL 0.34 mg/dL (0.2-1.3); CARBON DIOXIDE 31.8 mmol/L (21.0-32.0); CHLORIDE - SERUM 102 mmol/L (98-107); CREATININE - SERUM 0.7 mg/dL (0.6-1.3); GLUCOSE 97 mg/dL (74-106); LIPASE 1446 U/L (73-393); PROTEIN - SERUM 6.3 g/dL (6.4-8.2); SODIUM 137 mmol/L (136-145); eGFR NON AFRICAN AMERICAN > 90 mL/min (90-120)
[2017-10-06 05:11] LABS: CALC OSMOLALITY 272 mosm/kg (275-300); POTASSIUM - SERUM 3.8 mmol/L (3.5-5.1); UREA NITROGEN 10 mg/dL (7-18)
[2017-10-06 06:26] VITALS: BP 124/71
[2017-10-06 08:23] VITALS: BP 134/79
[2017-10-06 11:41] VITALS: BP 114/68
[2017-10-06 16:11] VITALS: BP 134/82
[2017-10-06 21:07] VITALS: BP 122/70
[2017-10-07 01:16] VITALS: BP 139/83
[2017-10-07 05:10] VITALS: BP 120/68
[2017-10-07 06:56] LABS: BASOPHILS 0.4 % (0-2); EOSINOPHILS 5.1 % (0-7); HEMATOCRIT 43.9 % (42.0-54.0); HEMOGLOBIN 14.4 g/dL (13.5-17.5); IMMATURE GRANULOCYTES 0.8 % (0-5); LYMPHOCYTES 18.3 % (15-50); MCH 30.1 pg (26.0-34.0); MCHC 32.8 g/dL (31.0-37.0); MCV 91.6 fL (80.0-100.0); MEAN PLATELET VOLUME 9.8 fL (7.4-10.4); MONOCYTES 10.1 % (2-11); NEUTROPHILS 65.3 % (40-80); PLATELET COUNT 389 10x3/uL (130-400); RBC 4.79 10x6/uL (4.20-6.10); RDW 13.4 % (11.5-14.5); WBC 7.8 10x3/uL (4.8-10.8)
[2017-10-07 07:23] LABS: ALBUMIN 2.2 g/dL (3.4-5.0); ALKALINE PHOSPHATASE 115 U/L (46-116); ALT (SGPT) 15 U/L (10-68); BILIRUBIN - TOTAL 0.31 mg/dL (0.2-1.3); CALC OSMOLALITY 277 mosm/kg (275-300); CALCIUM 8.8 mg/dL (8.5-10.1); CARBON DIOXIDE 34.3 mmol/L (21.0-32.0); CHLORIDE - SERUM 101 mmol/L (98-107); CREATININE - SERUM 0.8 mg/dL (0.6-1.3); GLUCOSE 98 mg/dL (74-106); PROTEIN - SERUM 6.5 g/dL (6.4-8.2); SODIUM 140 mmol/L (136-145); UREA NITROGEN 11 mg/dL (7-18); eGFR NON AFRICAN AMERICAN > 90 mL/min (90-120)
[2017-10-07 07:25] LABS: LIPASE 1789 U/L (73-393); POTASSIUM - SERUM 3.2 mmol/L (3.5-5.1)
[2017-10-07 13:48] VITALS: BP 128/78
[2017-10-08] VITALS (13 sets, daily range): BP systolic 119–141; BP diastolic 67–85
[2017-10-08 06:02] LABS: BASOPHILS 0.7 % (0-2); EOSINOPHILS 4.4 % (0-7); HEMOGLOBIN 14.4 g/dL (13.5-17.5); IMMATURE GRANULOCYTES 0.6 % (0-5); LYMPHOCYTES 20.7 % (15-50); MCH 30.3 pg (26.0-34.0); MCHC 32.7 g/dL (31.0-37.0); MCV 92.6 fL (80.0-100.0); MEAN PLATELET VOLUME 9.9 fL (7.4-10.4); MONOCYTES 12.7 % (2-11); NEUTROPHILS 60.9 % (40-80); PLATELET COUNT 365 10x3/uL (130-400); RBC 4.75 10x6/uL (4.20-6.10); RDW 13.5 % (11.5-14.5); WBC 6.8 10x3/uL (4.8-10.8)
[2017-10-08 06:22] LABS: APTT 32.2 SECONDS (22.8-39.4); INR 0.98 (0.85-1.17); PROTIME 12.6 SECONDS (11.6-15.0)
[2017-10-08 06:29] LABS: ALBUMIN 2.2 g/dL (3.4-5.0); ALKALINE PHOSPHATASE 130 U/L (46-116); ALT (SGPT) 14 U/L (10-68); BILIRUBIN - TOTAL 0.22 mg/dL (0.2-1.3); CALC OSMOLALITY 282 mosm/kg (275-300); CALCIUM 8.9 mg/dL (8.5-10.1); CARBON DIOXIDE 36.8 mmol/L (21.0-32.0); CHLORIDE - SERUM 103 mmol/L (98-107); CREATININE - SERUM 0.9 mg/dL (0.6-1.3); GLUCOSE 105 mg/dL (74-106); PROTEIN - SERUM 6.1 g/dL (6.4-8.2); SODIUM 142 mmol/L (136-145); UREA NITROGEN 13 mg/dL (7-18); eGFR NON AFRICAN AMERICAN 88 mL/min (90-120)
[2017-10-08 06:30] LABS: LIPASE 1988 U/L (73-393)
[2017-10-09 01:15] VITALS: BP 127/64
[2017-10-09 05:40] VITALS: BP 132/74
[2017-10-09 06:19] LABS: BASOPHILS 0.4 % (0-2); HEMATOCRIT 45.3 % (42.0-54.0); LYMPHOCYTES 18.1 % (15-50); MCH 30.7 pg (26.0-34.0); MCHC 33.1 g/dL (31.0-37.0); MCV 92.6 fL (80.0-100.0); MEAN PLATELET VOLUME 9.8 fL (7.4-10.4); MONOCYTES 10.6 % (2-11); NEUTROPHILS 64.9 % (40-80); PLATELET COUNT 371 10x3/uL (130-400); RBC 4.89 10x6/uL (4.20-6.10); RDW 13.4 % (11.5-14.5); WBC 7.2 10x3/uL (4.8-10.8)
[2017-10-09 06:58] LABS: ALBUMIN 2.2 g/dL (3.4-5.0); ALKALINE PHOSPHATASE 120 U/L (46-116); ALT (SGPT) 16 U/L (10-68); BILIRUBIN - TOTAL 0.32 mg/dL (0.2-1.3); CALC OSMOLALITY 279 mosm/kg (275-300); CALCIUM 9.3 mg/dL (8.5-10.1); CARBON DIOXIDE 32.8 mmol/L (21.0-32.0); CHLORIDE - SERUM 101 mmol/L (98-107); GLUCOSE 102 mg/dL (74-106); MAGNESIUM - SERUM 2.1 mg/dL (1.8-2.4); PROTEIN - SERUM 6.6 g/dL (6.4-8.2); SODIUM 140 mmol/L (136-145); UREA NITROGEN 14 mg/dL (7-18); eGFR NON AFRICAN AMERICAN 78 mL/min (90-120)
[2017-10-09 07:07] LABS: LIPASE 1981 U/L (73-393); POTASSIUM - SERUM 3.9 mmol/L (3.5-5.1)
[2017-10-09 08:42] VITALS: BP 117/70
[2017-10-09 11:38] VITALS: BP 114/67
[2017-10-09 16:04] VITALS: BP 137/83
[2017-10-09 21:02] VITALS: BP 123/71
[2017-10-10 05:35] LABS: BASOPHILS 0.4 % (0-2); EOSINOPHILS 5.6 % (0-7); HEMATOCRIT 44.5 % (42.0-54.0); HEMOGLOBIN 14.7 g/dL (13.5-17.5); IMMATURE GRANULOCYTES 0.7 % (0-5); LYMPHOCYTES 19.1 % (15-50); MCH 30.5 pg (26.0-34.0); MCV 92.3 fL (80.0-100.0); MEAN PLATELET VOLUME 9.7 fL (7.4-10.4); MONOCYTES 10.6 % (2-11); NEUTROPHILS 63.6 % (40-80); PLATELET COUNT 411 10x3/uL (130-400); RBC 4.82 10x6/uL (4.20-6.10); RDW 13.2 % (11.5-14.5); WBC 7.5 10x3/uL (4.8-10.8)
[2017-10-10 06:11] VITALS: BP 125/76
[2017-10-10 06:30] LABS: ALBUMIN 2.2 g/dL (3.4-5.0); ALKALINE PHOSPHATASE 123 U/L (46-116); ALT (SGPT) 16 U/L (10-68); BILIRUBIN - TOTAL 0.33 mg/dL (0.2-1.3); CALC OSMOLALITY 279 mosm/kg (275-300); CALCIUM 8.9 mg/dL (8.5-10.1); CHLORIDE - SERUM 100 mmol/L (98-107); CREATININE - SERUM 0.8 mg/dL (0.6-1.3); GLUCOSE 100 mg/dL (74-106); MAGNESIUM - SERUM 1.9 mg/dL (1.8-2.4); POTASSIUM - SERUM 3.9 mmol/L (3.5-5.1); PROTEIN - SERUM 6.8 g/dL (6.4-8.2); SODIUM 140 mmol/L (136-145); UREA NITROGEN 16 mg/dL (7-18); eGFR NON AFRICAN AMERICAN > 90 mL/min (90-120)
[2017-10-10 07:48] VITALS: BP 126/79
[2017-10-10 11:52] VITALS: BP 108/65
[2017-10-10 15:54] VITALS: BP 116/82
[2017-10-10 21:00] VITALS: BP 133/78
[2017-10-11 02:11] VITALS: BP 117/73
[2017-10-11 05:59] LABS: BASOPHILS 0.4 % (0-2); EOSINOPHILS 6.3 % (0-7); HEMATOCRIT 43.8 % (42.0-54.0); HEMOGLOBIN 14.6 g/dL (13.5-17.5); IMMATURE GRANULOCYTES 0.7 % (0-5); LYMPHOCYTES 18.8 % (15-50); MCH 30.7 pg (26.0-34.0); MCHC 33.3 g/dL (31.0-37.0); MEAN PLATELET VOLUME 9.7 fL (7.4-10.4); MONOCYTES 10.7 % (2-11); NEUTROPHILS 63.1 % (40-80); PLATELET COUNT 364 10x3/uL (130-400); RBC 4.76 10x6/uL (4.20-6.10); RDW 13.3 % (11.5-14.5); WBC 7.2 10x3/uL (4.8-10.8)
[2017-10-11 06:21] LABS: ALBUMIN 2.3 g/dL (3.4-5.0); ALKALINE PHOSPHATASE 111 U/L (46-116); ALT (SGPT) 19 U/L (10-68); CALC OSMOLALITY 280 mosm/kg (275-300); CALCIUM 9.3 mg/dL (8.5-10.1); CHLORIDE - SERUM 103 mmol/L (98-107); CREATININE - SERUM 0.9 mg/dL (0.6-1.3); GLUCOSE 107 mg/dL (74-106); POTASSIUM - SERUM 4.2 mmol/L (3.5-5.1); PROTEIN - SERUM 6.6 g/dL (6.4-8.2); SODIUM 140 mmol/L (136-145); UREA NITROGEN 17 mg/dL (7-18); eGFR NON AFRICAN AMERICAN 88 mL/min (90-120)
[2017-10-11 06:24] LABS: LIPASE 2090 U/L (73-393)
[2017-10-11 06:28] VITALS: BP 101/61
[2017-10-11 07:40] VITALS: BP 98/66
[2017-10-11] MEDS ORDERED: TESSALON PERLE100 MG PO (11:37)
[2017-10-11] MEDS ORDERED: MUCINEX DM ER1 EAC1 PO (11:37)
[2017-10-11] MEDS ORDERED: ALBUTEROL2.5 MG/3 M INH (11:38)
[2017-10-11] MEDS ORDERED: CREON (PANCRELI1 CAP PO (11:42)
[2017-10-11] MEDS ORDERED: IPRAT-ALBUT 0.5-3 ML UPD (13:23)
[2017-10-11] MEDS ORDERED: ADVAIR 250/501 DISK INH (13:23)
[2017-10-21 08:08] LABS: FUNGUS MYCOLOGY CULTURE Final report (())
[2017-11-15 11:21] LABS: ACID FAST CULTURE Negative (()); ACID FAST SMEAR Negative (())
== END 2017-10-11 17:58 | disposition home or self-care (01) | DRG 177 ==
LOC: D.ER 16:23 → D.EDHOLD 18:46 → D.M2 18:46
PROVIDERS: Emergency Medicine; Family Medicine; Family Medicine Adult Medicine; Internal Medicine; Internal Medicine Cardiovascular Disease; Internal Medicine Nephrology; Internal Medicine Pulmonary Disease; Radiology Diagnostic Radiology
PROC: 0W993ZZ Drainage of Right Pleural Cavity, Percutaneous Approach (ICD-10-PCS; principal; 2017-09-22 10:45)
PROC: 0W993ZZ Drainage of Right Pleural Cavity, Percutaneous Approach (ICD-10-PCS; 2017-10-08)
DX: J86.9 Pyothorax without fistula (principal); J18.9 Pneumonia, unspecified organism; J96.21 Acute and chronic respiratory failure with hypoxia; K85.90 Acute pancreatitis without necrosis or infection, unspecified; G93.41 Metabolic encephalopathy; E43 Unspecified severe protein-calorie malnutrition; J44.1 Chronic obstructive pulmonary disease with (acute) exacerbation; J44.0 Chronic obstructive pulmonary disease with (acute) lower respiratory infection; N17.9 Acute kidney failure, unspecified; J90 Pleural effusion, not elsewhere classified; F17.213 Nicotine dependence, cigarettes, with withdrawal; Z68.1 Body mass index [BMI] 19.9 or less, adult; J98.11 Atelectasis; N40.0 Benign prostatic hyperplasia without lower urinary tract symptoms; E78.5 Hyperlipidemia, unspecified; I12.9 Hypertensive chronic kidney disease with stage 1 through stage 4 chronic kidney disease, or unspecified chronic kidney disease; N18.9 Chronic kidney disease, unspecified; G62.9 Polyneuropathy, unspecified; Z91.19 Patient's noncompliance with other medical treatment and regimen; D75.1 Secondary polycythemia; G25.81 Restless legs syndrome; E86.0 Dehydration; N28.1 Cyst of kidney, acquired

== ENCOUNTER 2017-10-16 16:47 | Emergency (ER) | payer MEDICARE ==
[~2017-10-16] VITALS: Ht 185.4 cm; Wt 65.0 kg
[~2017-10-16 16:47] MED LIST: ADVAIR 250/501 DISK INH; ALBUTEROL2.5 MG/3 M INH; BAYER CHEWABLE81 MG PO; CREON (PANCRELI1 CAP PO; HYZAAR 50-12.51 TAB PO; IPRAT-ALBUT 0.5-3 ML UPD; METOPROLOL TART50 MG PO; MUCINEX DM ER1 EAC1 PO; NEURONTIN 300300 MG; NEURONTIN600 MG PO; NIFEDIPINE ER60 MG PO; OMEPRAZOLE20 M1 PO; PRAVACHOL20 MG PO; PROSCAR5 MG PO; REQUIP0.25 MG PO; TESSALON PERLE100 MG PO; TOPROL XL50 MG
[2017-10-16 16:54] VITALS: Ht 185.4 cm; Wt 65.0 kg
[2017-10-16 18:23] LABS: BASOPHILS 0.1 % (0-2); HEMATOCRIT 45.7 % (42.0-54.0); IMMATURE GRANULOCYTES 0.3 % (0-5); LYMPHOCYTES 17.8 % (15-50); MCH 30.2 pg (26.0-34.0); MCHC 32.8 g/dL (31.0-37.0); MCV 92.1 fL (80.0-100.0); MEAN PLATELET VOLUME 9.5 fL (7.4-10.4); MONOCYTES 9.4 % (2-11); NEUTROPHILS 67.4 % (40-80); PLATELET COUNT 356 10x3/uL (130-400); RBC 4.96 10x6/uL (4.20-6.10); RDW 13.5 % (11.5-14.5); WBC 7.2 10x3/uL (4.8-10.8)
[2017-10-16 18:44] LABS: ALBUMIN 2.5 g/dL (3.4-5.0); ALKALINE PHOSPHATASE 121 U/L (46-116); ALT (SGPT) 20 U/L (10-68); BILIRUBIN - TOTAL 0.24 mg/dL (0.2-1.3); CALC OSMOLALITY 282 mosm/kg (275-300); CALCIUM 9.3 mg/dL (8.5-10.1); CARBON DIOXIDE 31.2 mmol/L (21.0-32.0); CHLORIDE - SERUM 106 mmol/L (98-107); CREATININE - SERUM 0.9 mg/dL (0.6-1.3); GLUCOSE 100 mg/dL (74-106); POTASSIUM - SERUM 4.8 mmol/L (3.5-5.1); PROTEIN - SERUM 7.2 g/dL (6.4-8.2); SODIUM 143 mmol/L (136-145); UREA NITROGEN 8 mg/dL (7-18); eGFR NON AFRICAN AMERICAN 88 mL/min (90-120)
[2017-10-16 19:14] LABS: CKMB 0.9 U/L (0.0-3.6); CREATINE KINASE 22 UL (21-232); PRO BNP 398 pg/mL (0-125); TROPONIN-I < 0.017 ng/mL (0.000-0.060)
[2017-10-16 20:13] VITALS: BP 160/90
== END 2017-10-16 19:45 | disposition home or self-care (01) ==
LOC: D.ER 16:47
PROVIDERS: Family Medicine
DX: J90 Pleural effusion, not elsewhere classified (principal); J44.9 Chronic obstructive pulmonary disease, unspecified; Z99.81 Dependence on supplemental oxygen; I10 Essential (primary) hypertension

== ENCOUNTER 2017-10-21 15:09 | Inpatient (IN) | payer MEDICARE ==
[~2017-10-21] VITALS: Ht 185.4 cm; Wt 59.0 kg
--- NOTE | ~2017-10-21 | CN ---
PATIENT NAME:SUZETTE QUIÑONES MEDICAL RECORD: [id number] : 47 LOCATION:D.MS Rose2228 ADMIT DATE: 10/21/17 ACCOUNT: [id number] CONSULTING PHYSICIAN: PAULA GAVIN REFERRING PHYSICIAN: ANJEL INGRAM MD DATE OF CONSULTATION: 10/21/2017 HISTORY OF PRESENT ILLNESS: A 72-year-old man who was previously admitted for acute pancreatitis with right pleural effusion and right-sided pneumonia. The patient had thoracentesis with removal of fluid, did not show any pathology. There was no pulmonary embolism. The patient went to the Dr. Yen's office today and was noted to have shortness of breath and discomfort. Repeat chest x-ray had showed recurrence of the right pleural effusion. The patient was directly admitted. The patient has had a history of emphysema and empyema and pancreatitis and hypertension. PAST SURGICAL HISTORY: Includes tonsillectomy. ALLERGIES: INCLUDE TYLENOL AND HYDROCODONE. ADMISSION MEDICATIONS: Tessalon Perles, Mucinex DM 30 mg b.i.d., albuterol updrafts every 2 hours as needed for wheezes and inhaler q. 2 hours p.r.n., Pancrease 12,000 units p.o. t.i.d., DuoNeb 3 cc q.i.d., Advair Diskus 1 puff b.i.d. FAMILY HISTORY: Unknown. SOCIAL HISTORY: The patient used to smoke, does not drink or smoke now. Uses recreational drugs. REVIEW OF SYSTEMS: CONSTITUTIONAL: The patient denies any fever or chills, weight loss. SHEENT: There is no headache, nasal drainage or sore throat. CARDIOPULMONARY. The patient denies any orthopnea or PND. There is mild nonproductive cough. GASTROINTESTINAL: He had still abdominal pain. No nausea or vomiting. PHYSICAL EXAMINATION: GENERAL: Physical exam reveals an elderly man who is in no acute distress. VITAL SIGNS: Afebrile, blood pressure is normal, respiratory rate is 18. SHEENT: Unremarkable. Nares are normal. NECK: Supple. There is no adenopathy. Trachea is midline. LUNGS: Clear. Symmetric. HEART: Exam shows no jugular venous distention, no murmur or gallops. ABDOMEN: Benign. There is no tenderness. EXTREMITIES: Show no clubbing, cyanosis or edema. LABORATORY DATA: CBC showed white count of 8.3, hemoglobin 15.2, platelet count is 342. Chemistry is remarkable for creatinine is 1.2, BUN is 9. BNP is 195. Albumin is 2.5. Lipase is 1095, which is much less than before. Chest x-ray showed enlarging right pleural effusion with pulmonary airspace CONSULT REPORT [id number] SUZETTE QUIÑONES disease in the right lower lobe. Mild improvement in airspace disease of the left lower lobe. IMPRESSION: 1. Recurrent right pleural effusion, probably with loculation as well. The patient may need a small caliber chest tube and with TPA thrombolysis. No psychosis. 2. The patient had chronic obstructive pulmonary disease. He is on bronchodilators. 3. Acute pancreatitis, improving, it was in the 1000s and now is at 1000. The patient has no symptoms. 3. Pneumonia, it is improving as well. PLAN: 1. As ordered, interventional radiology for thoracentesis. 2. Continue bronchodilators. 3. We will also defer antibiotics at this time. TRANSINT:[id number] Voice Confirmation ID: [id number] DOCUMENT ID: [id number] PAULA GAVIN at 1248 CC: [id number] DICTATION DATE: 10/21/172046 GRAB SETTER: 10/22/178 DIS IN 10/22/17 [place] [address] [place] [address]
--- NOTE | ~2017-10-21 | HEMODYNAMI ---
PATIENT:SUZETTE QUIÑONES MEDICAL RECORD: [id number] : 47 LOCATION:D D.2228 ADMISSION DATE: 10/21/17 Generatedon:10/22/201711:23 Patient name: SUZETTE QUIÑONES Patient #: [id number] SSN: D OB: 1945 Date of study: 10/22/2017 Page: Of Hemodynamic Procedure Report Patient Data Patient Demographics Procedure consent was obtained First Name: SUZETTE Gender: Male Last Name: ISHMAEL : 1945 Patient #: [id number] Age: 72 year(s) Race: Unknown Additional ID: [id number] Contact details [address]: [address] [place] [address] [address]REET State: [place] City: [place] Zip code: [address] Past Medical History Allergies Allergen Reaction Date Comments Reported Vicodin 10/22/2017 Admission Admission Data Admission Date: 10/21/2017 Admission Time: 15:09 Room #: D.2228 Procedure Procedure Types Cath Procedure Peripheral Cath Diagnostic Procedure Miscellaneous Pleurex Pleurex Cath Place w/ Imaging Procedure Description Procedure Date Procedure Date: 10/22/2017 Procedure Start Time: 10:44 Procedure Staff Name Function Tiffany Bower MD Performing Physician Shania Lynne RT Monitor Jaron Robles RT Scrub Urszula Birmingham RN Nurse Procedure Data Cath Procedure Fluoroscopy Diagnostic fluoroscopy Total fluoroscopy Time: 1 time: 1 min min Diagnostic fluoroscopy Total fluoroscopy dose: 28 dose: 28 mGy mGy Procedure Medications Medication Administration Route Dosage Oxygen etCO2 Nasal cannula 4 l/min Lidocaine 1% 20 Heparin Flush Bag added to field 1 bags (1000units/500ml NS) Fentanyl I.V. 50 mcg Versed I.V. 2 mg unlisted medication I.V. 1 g Fentanyl I.V. 50 mcg Hemodynamics Rest Heart Rate: 76 (bpm) Snapshots Pre Cath Intra NCS Post Cath Vital Signs Time Heart Resp SPO2 etCO2 NIBP (mmHg) Rhythm Pain Sedation Rate (ipm) (%) (mmHg) Status Level (bpm) 10:20:25 142 6 92 18.8 168/106(119) ST 0 (11) 9(A) , No pain 10:25:24 [address] 0 (11) 9(A) , No pain 10:25:31 111 18 93 29.3 150/98(134) ST 0 (11) 9(A) , No pain 10:29:46 112 21 91 24.8 161/101(122) ST 0 (11) 9(A) , No pain 10:34:05 105 19 87 23.3 156/99(125) ST 0 (11) 9(A) , No pain 10:38:25 109 19 90 18.8 161/103(129) ST 0 (11) 9(A) , No pain 10:43:24 115 [address] 0 (11) 9(A) , No pain 10:44:09 115 6 89 18 162/101(132) ST 0 (11) 9(A) , No pain 10:48:23 105 31 88 15.8 148/90(120) ST 0 (11) 8(A) , No pain 10:52:33 104 15 91 18 144/90(112) ST 0 (11) 8(A) , No pain 10:56:47 108 15 94 3 157/91(122) ST 0 (11) 8(A) , No pain 11:01:01 107 15 95 12.7 147/86(109) ST 0 (11) 8(A) , No pain 11:05:11 106 16 95 12.7 143/90(111) ST 0 (11) 8(A) , No pain 11:09:23 105 16 96 27.8 143/86(101) ST 0 (11) 8(A) , No pain 11:13:33 103 18 90 26.3 145/92(111) ST 0 (11) 8(A) , No pain 11:17:55 86 24.8 155/85(120) ST 0 (11) 8(A) , No pain 11:22:02 85 33.1 145/101(116) ST 0 (11) 8(A) , No pain Medications Time Medication Route Dose Verified Delivered Reason Notes Effec tiveness by by 10:27:52 Oxygen etCO2 4 M J Sathish Seaman Per Nasal l/min MD Birmingham RN protocol cannula 10:28:02 Lidocaine 1% 20ml M Huyen Bower Per vial MD TORRES protocol 10:28:28 Heparin Flush added 1 M J Sathish Bower Per Bag to bags MD TORRES protocol (1000units/500ml field NS) 10:48:09 Fentanyl I.V. 50 M J Long Urszula for Mostl y mcg MD Birmingham RN sedation sleeping @ 10:50:31 10:48:20 Versed I.V. 2 mg M J Sathish Urszula for Mostl y MD Vinnie LAYTON sedation sleeping @ 10:50:34 10:49:05 cefepime I.V. 1 g M J Sathish Boyceine Per MD Vinnie LAYTON protocol 10:53:26 Fentanyl I.V. 50 M J Sathish Boyceine for Sedat ed @ [facility] [place] MD Vinnie LAYTON sedation 10:56:08 Procedure Log Time Note 10:10:29 Jaron Robles RT (R) (CV) sent for patient. Start room use. 10:10:37 Time tracking: Regular hours (M-F 7:00 - 5:00) 10:10:53 Plan of Care:Hemodynamics will remain stable., Cardiac rhythm will remain stable., Comfort level will be maintained., Respiratory function will remain adequate., Patient/ family verbilizes understanding of procedure., Procedure tolerated without complication., Recovers from procedure without complications.. 10:16:53 Use device set IR Diagnostic 10:16:58 Tegaderm 4 x 4 (1626W) opened to sterile field. 10:16:59 Sterile Angiographic Pack opened to sterile field. 10:17:00 Bag Decanter (2002S) opened to sterile field. 10:17:41 PLEURX PLEURAL cath system (206881S) opened to sterile field. 10:19:05 Patient received from Med/Surg to IR Alert and oriented. Tansferred to table in Supine position. 10:19:07 Correct patient and procedure confirmed by team. 10:19:09 Signed procedure consent form obtained from patient. 10:19:10 ECG and BP/O2 sat monitors applied to patient. 10:19:11 Vital chart was started 10:19:34 Baseline sample Acquired. 10:19:48 Full Disclosure recording started 10:19:50 - 10:19:56 H&P Date Dictated: 10/22/2017 Within 30 days and on chart.. 10:19:57 Pre-procedure instructions explained to patient. 10:19:58 Pre-op teaching completed and patient verbalized understanding. 10:20:00 Family unavailable. 10:20:03 Patient NPO since Midnight. 10:20:19 Patient allergic to Vicodin 10:20:23 Is the patient allergic to Iodine/contrast media? No. 10:20:25 Is patient on blood thinner?Yes 10:20:29 ACC The patient was administered the following blood thiners within the last 24 hours: ACCAspirin 10:20:33 Patient diabetic? No. 10:20:35 - 10:20:36 ----Pre-sedation anethsthesia assessment.---- 10:20:45 Previous problem with sedation/anesthesia? No ? 10:20:49 Snore? No 10:20:51 Sleep apnea? No 10:20:54 Deviated septum? No 10:20:58 Opens mouth fully? Yes 10:21:00 Sticks out tongue? Yes 10:21:16 Airway obstruction? Yes pleural effusion 10:21:24 Dentures? No ? 10:21:34 IV patent on arrival in right forearm with D5/.45%NaCl at [facility]. 10:21:43 Right chest area was prepped with chlora-prep and draped in sterile fashion 10:27:52 Oxygen 4 l/min etCO2 Nasal cannula was administered by Urszula Birmingham RN; Per protocol; 10:28:02 Lidocaine 1% 20ml vial was administered by Tiffany Bower MD; Per protocol; 10:28:28 Heparin Flush Bag (1000units/500ml NS) 1 bags added to field was administered by Tiffany Bower MD; Per protocol; 10:40:05 Physician arrived 10:40:13 --------ALL STOP TIME OUT------ 10:40:13 Final Timeout: patient, procedure, and site verified with staff and physician. All members of the team are in agreement. 10:44:17 Procedure started. 10:44:24 Local anesthetic to Chest area with Lidocaine 1% by Tiffany Bower MD.INITIAL ACCESS ONLY 10:48:09 Fentanyl 50 mcg I.V. was administered by Urszula Birmingham RN; for sedation; 10:48:20 Versed 2 mg I.V. was administered by Urszula Birmingham RN; for sedation; 10:49:05 cefepime 1 g I.V. was administered by Urszula Birmingham RN; Per protocol ; 10:50:31 Effectiveness of Fentanyl delivered @ 10:48:09 is: Mostly sleeping 10:50:34 Effectiveness of Versed delivered @ 10:48:20 is: Mostly sleeping 10:53:26 Fentanyl 50 mcg I.V. was administered by Urszula Birmingham RN; for sedation; 10:56:08 Effectiveness of Fentanyl delivered @ 10:53:26 is: Sedated 10:58:24 pleurX cath placed in rt chest 10:58:36 Dermabond Pen opened to sterile field. 11:08:23 Procedure ended.(Physican Out) 11:09:27 Fluoroscopy time 01.00 minutes. 11:09:36 Fluoroscopy dose: 28 mGy 11:09:36 Flurop Dose total: 28 11:09:39 Procedure and supply charges have been captured, reviewed, submitted an d are correct. 11:10:39 Report given to Med/Surg. 11:23:31 Vital chart was stopped Device Usage Item Name Manufacture Quantity Catalog Hospital Part Current Minimal Lot# / Number Charge Number Stock Stock Serial# Code Tegaderm 4 x 3M 1 [id number] 5 4 (1626W) Sterile Cardinal 1 [id number] 5 Angiographic Health Pack Bag Decanter Microtek 1 [id number] 5 () [employer] PLEURX CareFusion 1 [id number] 5 [id number] PLEURAL cath system ([id number]) Dermabond Ethicon 1 [id number] [id number] 5 Pen Signature Audit [place] Stage Time Signature Unsigned Intra-Procedure 10/22/2017 Shania Lynne 11:23:29 AM RT(R) Signatures Monitor : Shania Lynne RT Signature : Date : Time : [facility] [address] [place] [address]
[2017-10-21 16:26] LABS: BASOPHILS 0.4 % (0-2); EOSINOPHILS 5.2 % (0-7); HEMATOCRIT 45.7 % (42.0-54.0); HEMOGLOBIN 15.2 g/dL (13.5-17.5); IMMATURE GRANULOCYTES 0.4 % (0-5); LYMPHOCYTES 15.9 % (15-50); MCH 30.5 pg (26.0-34.0); MCHC 33.3 g/dL (31.0-37.0); MCV 91.8 fL (80.0-100.0); MEAN PLATELET VOLUME 9.2 fL (7.4-10.4); MONOCYTES 7.5 % (2-11); NEUTROPHILS 70.6 % (40-80); PLATELET COUNT 342 10x3/uL (130-400); RBC 4.98 10x6/uL (4.20-6.10); RDW 13.8 % (11.5-14.5); WBC 8.3 10x3/uL (4.8-10.8)
[2017-10-21 16:42] LABS: INR 1.08 (0.85-1.17); PROTIME 13.3 SECONDS (11.6-15.0)
[2017-10-21 16:50] LABS: APTT 29.1 SECONDS (22.8-39.4)
[2017-10-21 16:57] LABS: ALBUMIN 2.5 g/dL (3.4-5.0); ANION GAP 8.6 mmol/L (8-16); BILIRUBIN - TOTAL 0.35 mg/dL (0.2-1.3); CALCIUM 8.9 mg/dL (8.5-10.1); CARBON DIOXIDE 29.6 mmol/L (21.0-32.0); CREATININE - SERUM 1.2 mg/dL (0.6-1.3); POTASSIUM - SERUM 4.2 mmol/L (3.5-5.1); PROTEIN - SERUM 6.5 g/dL (6.4-8.2)
[2017-10-21 21:16] VITALS: BP 155/89
[2017-10-22 04:27] VITALS: BP 134/74
[2017-10-22 05:32] LABS: APPEARANCE CLEAR (CLEAR); BILIRUBIN NEGATIVE (NEGATIVE); COLOR YELLOW (YELLOW); EPITHELIAL CELLS 0-5 /hpf (0-5); GLUCOSE NEGATIVE (NEGATIVE); KETONE NEGATIVE (NEGATIVE); NITRITE NEGATIVE (NEGATIVE); PROTEIN NEGATIVE (NEGATIVE); RED CELLS - URINE 0-5 /hpf (0-5); UROBILINOGEN NORMAL (NORMAL); WHITE CELLS - URINE 0-5 /hpf (0-5)
[2017-10-22 05:33] LABS: BACTERIA FEW /hpf (NONE SEEN)
[2017-10-22 06:29] LABS: BASOPHILS 0.1 % (0-2); EOSINOPHILS 6.3 % (0-7); HEMATOCRIT 44.4 % (42.0-54.0); HEMOGLOBIN 14.5 g/dL (13.5-17.5); IMMATURE GRANULOCYTES 0.5 % (0-5); LYMPHOCYTES 21.6 % (15-50); MCH 29.8 pg (26.0-34.0); MCHC 32.7 g/dL (31.0-37.0); MCV 91.4 fL (80.0-100.0); MEAN PLATELET VOLUME 9.4 fL (7.4-10.4); NEUTROPHILS 62.5 % (40-80); PLATELET COUNT 307 10x3/uL (130-400); RBC 4.86 10x6/uL (4.20-6.10); RDW 13.7 % (11.5-14.5); WBC 7.7 10x3/uL (4.8-10.8)
[2017-10-22 06:51] LABS: ALBUMIN 2.2 g/dL (3.4-5.0); ALKALINE PHOSPHATASE 109 U/L (46-116); ALT (SGPT) 17 U/L (10-68); BILIRUBIN - TOTAL 0.29 mg/dL (0.2-1.3); CALC OSMOLALITY 281 mosm/kg (275-300); CALCIUM 8.8 mg/dL (8.5-10.1); CHLORIDE - SERUM 107 mmol/L (98-107); LIPASE 1138 U/L (73-393); POTASSIUM - SERUM 4.2 mmol/L (3.5-5.1); PROTEIN - SERUM 6.4 g/dL (6.4-8.2); SODIUM 142 mmol/L (136-145); UREA NITROGEN 9 mg/dL (7-18); eGFR NON AFRICAN AMERICAN 78 mL/min (90-120)
[2017-10-22 06:53] LABS: GLUCOSE 101 mg/dL (74-106)
[2017-10-22 08:17] LABS: APTT 31.5 SECONDS (22.8-39.4)
[2017-10-22 08:40] VITALS: BP 145/83
[2017-10-22 09:19] VITALS: BMI 17.1
[2017-10-22 09:54] LABS: INR 1.03 (0.85-1.17); PROTIME 12.9 SECONDS (11.6-15.0)
[2017-10-22 10:48] VITALS: Ht 185.4 cm; Wt 59.0 kg
[2017-10-22 11:20] VITALS: BP 147/90; BP 166/92
[2017-10-22 11:50] VITALS: BP 150/82
[2017-10-22 12:05] VITALS: BP 163/82
[2017-10-22 12:29] LABS: PROTEIN - BODY FLUID 3.9 G/DL
[2017-10-22] MEDS ORDERED: FUROSEMIDE20 MG PO (14:14)
[2017-10-22] MEDS ORDERED: POTASSIUM CHLO10 ME1 PO (14:15)
[2017-10-22] MEDS ORDERED: CREON (PANCRELI1 CAP PO (14:15)
[2017-10-22 14:23] LABS: EOS BF 10 %; MACROPHAGES BF 29 %; MESOTHELIALS BF 1 %; NEUT - BF 2 %
[2017-10-22 15:54] VITALS: BP 122/79
[2017-10-23 17:13] LABS: ACID FAST SMEAR Negative (()); AFB SPECIMEN PROCESSING Concentration (())
[2017-10-25 12:16] LABS: FUNGUS STAIN Final report (())
[2017-11-19 06:14] LABS: FUNGUS MYCOLOGY CULTURE Final report (())
== END 2017-10-22 16:25 | disposition home or self-care (01) | DRG 193 ==
LOC: D.MS 15:09
PROVIDERS: Family Medicine; Internal Medicine Pulmonary Disease; Radiology Vascular & Interventional Radiology
PROC: 0B9N30Z Drainage of Right Pleura with Drainage Device, Percutaneous Approach (ICD-10-PCS; principal; 2017-10-22 10:40)
DX: J18.9 Pneumonia, unspecified organism (principal); J96.21 Acute and chronic respiratory failure with hypoxia; K85.90 Acute pancreatitis without necrosis or infection, unspecified; E44.0 Moderate protein-calorie malnutrition; Z68.1 Body mass index [BMI] 19.9 or less, adult; J90 Pleural effusion, not elsewhere classified; Z99.81 Dependence on supplemental oxygen; J43.9 Emphysema, unspecified; E86.0 Dehydration; E78.5 Hyperlipidemia, unspecified; I10 Essential (primary) hypertension; N40.0 Benign prostatic hyperplasia without lower urinary tract symptoms; R91.1 Solitary pulmonary nodule; F32.9 Major depressive disorder, single episode, unspecified

== ENCOUNTER 2017-10-26 16:40 | Emergency (ER) | payer MEDICARE ==
[~2017-10-26 16:40] MED LIST changes: +FUROSEMIDE20 MG PO; +POTASSIUM CHLO10 ME1 PO
[2017-10-26 16:46] VITALS: Ht 185.4 cm
[2017-10-26 17:31] LABS: BASOPHILS 0.2 % (0-2); EOSINOPHILS 4.6 % (0-7); HEMATOCRIT 46.6 % (42.0-54.0); HEMOGLOBIN 15.9 g/dL (13.5-17.5); IMMATURE GRANULOCYTES 0.7 % (0-5); LYMPHOCYTES 19.1 % (15-50); MCH 30.8 pg (26.0-34.0); MCHC 34.1 g/dL (31.0-37.0); MCV 90.3 fL (80.0-100.0); MEAN PLATELET VOLUME 9.1 fL (7.4-10.4); MONOCYTES 8.8 % (2-11); NEUTROPHILS 66.6 % (40-80); PLATELET COUNT 315 10x3/uL (130-400); RBC 5.16 10x6/uL (4.20-6.10); RDW 13.7 % (11.5-14.5); WBC 9.7 10x3/uL (4.8-10.8)
[2017-10-26 17:45] LABS: ALBUMIN 2.4 g/dL (3.4-5.0); ALKALINE PHOSPHATASE 127 U/L (46-116); ALT (SGPT) 11 U/L (10-68); BILIRUBIN - TOTAL 0.36 mg/dL (0.2-1.3); CALC OSMOLALITY 276 mosm/kg (275-300); CALCIUM 9.2 mg/dL (8.5-10.1); CHLORIDE - SERUM 102 mmol/L (98-107); CREATININE - SERUM 0.9 mg/dL (0.6-1.3); GLUCOSE 115 mg/dL (74-106); POTASSIUM - SERUM 4.3 mmol/L (3.5-5.1); SODIUM 138 mmol/L (136-145); UREA NITROGEN 12 mg/dL (7-18); eGFR NON AFRICAN AMERICAN 88 mL/min (90-120)
[2017-10-26 17:53] LABS: TROPONIN-I < 0.017 ng/mL (0.000-0.060)
[2017-10-26 20:06] LABS: AMYLASE - SERUM 96 U/L (25-115); LIPASE 768 U/L (73-393)
[2017-10-26 22:50] VITALS: BP 133/74
== END 2017-10-26 22:50 | disposition home or self-care (01) ==
LOC: D.ER 16:40
PROVIDERS: Emergency Medicine
DX: R07.9 Chest pain, unspecified (principal); R10.9 Unspecified abdominal pain; J44.9 Chronic obstructive pulmonary disease, unspecified; R74.8 Abnormal levels of other serum enzymes

== ENCOUNTER → 2017-11-08 08:10 | Outpatient (CLI) | payer MEDICARE ==
[~2017-11-08 08:10] MED LIST changes: +RANITIDINE HCL150 M1
== END | disposition home or self-care (01) ==
LOC: D.NM 08:10
DX: R10.11 Right upper quadrant pain (principal)

== ENCOUNTER 2017-11-20 07:45 | Outpatient (CLI) | payer MEDICARE ==
[~2017-11-20] VITALS: Ht 185.4 cm; Wt 60.9 kg
--- NOTE | ~2017-11-20 | HEMODYNAMI ---
PATIENT:SUZETTE QUIÑONES MEDICAL RECORD: [id number] : 47 LOCATION:[facility] ADMISSION DATE: 11/20/17 Generatedon:11/20/201710:59 Patient name: SUZETTE QUIÑONES Patient #: [id number] SSN: Yumiko OB: 1945 Date of study: 11/20/2017 Page: Of Hemodynamic Procedure Report Patient Data Patient Demographics Procedure consent was obtained First Name: SUZETTE Gender: Male Last Name: ISHMAEL : 1945 Patient #: [id number] Age: 72 year(s) Race: Unknown Additional ID: [id number] Contact details [address]: [address] [place] [address] STREET State: [place] City: [place] Zip code: [address] Past Medical History Allergies Allergen Reaction Date Comments Reported Vicodin 10/22/2017 Vicodin 11/20/2017 Admission Admission Data Admission Date: 11/20/2017 Admission Time: 7:45 Height (in.): 73 BSA: 1.82 (m2) Height (cm.): 185.42 BMI: 17.68 (kg/m2) Weight (lbs.): 134 Weight (kg.): 60.78 Procedure Procedure Types Cath Procedure Peripheral Cath Diagnostic Procedure Message Broker Developer Peripheral Procedures Miscellaneous Pleurex Remove Pleurex Peritoneal Procedure Description Procedure Date Procedure Date: 11/20/2017 Procedure Start Time: 10:35 Procedure Staff Name Function Adan Duran MD Performing Physician Shania Lynne RT Ethnographer Urszula Birmingham RN Nurse Jaron Robles RT Scrub Procedure Data Cath Procedure Fluoroscopy Diagnostic fluoroscopy Total fluoroscopy Time: 0 time: 0 min min Diagnostic fluoroscopy Total fluoroscopy dose: 0 dose: 0 mGy mGy Procedure Medications Medication Administration Route Dosage Oxygen etCO2 Nasal cannula 3 l/min Lidocaine 1% added to field 20 Versed I.V. 2 mg Fentanyl I.V. 50 mcg Fentanyl I.V. 50 mcg Hemodynamics Rest BSA: 1.82 (m2) O2 Consumption: Estimated: 228.56 (ml/min) O2 Consumption indexed : Estimated:125.58 (ml/min/m) Heart Rate: 96 (bpm) Snapshots Pre Cath Intra NCS Post Cath Vital Signs Time Heart Resp SPO2 etCO2 NIBP (mmHg) Rhythm Pain Sedation Rate (ipm) (%) (mmHg) Status Level (bpm) 10:21:41 72 23 95 19.5 161/91(127) NSR 0 (11) 10(A) , No pain 10:25:57 91 22 100 21.7 155/89(126) NSR 0 (11) 10(A) , No pain 10:30:17 93 26 96 12 166/98(132) NSR 0 (11) 10(A) , No pain 10:34:35 101 16 95 15.7 168/114(148) ST 0 (11) 9(A) , No pain 10:38:16 94 18 100 1.5 154/98(130) NSR 0 (11) 8(A) , No pain 10:42:30 92 18 100 0 152/96(126) NSR 0 (11) 8(A) , No pain 10:46:44 88 17 96 32.3 147/91(117) NSR 0 (11) 8(A) , No pain 10:50:56 87 25 96 9.7 140/83(108) NSR 0 (11) 8(A) , No pain 10:55:08 87 17 96 12 149/93(124) NSR 0 (11) 8(A) , No pain 10:59:20 90 17 12.7 151/97(119) NSR 0 (11) 8(A) , No pain Medications Time Medication Route Dose Verified Delivered Reason Notes Effectiven ess by by 10:34:28 Oxygen etCO2 3 Adan Cr Nasal l/min Roger Birmingham RN protocol cannula 10:34:47 Lidocaine added 20ml Adan Cr 1% to vial Roger Duran protocol field MD TORRES 10:35:04 Versed I.V. 2 mg Adan Seaman for Fully awak e @ Roger Birmingham RN sedation 10:58:32 10:35:13 Fentanyl I.V. 50 Adan Seaman for Fully awak e @ mcg Roger Birmingham RN sedation 10:58:39 10:36:59 Fentanyl I.V. 50 Adan Seaman for Mostly mcg Roger Birmingham RN sedation sleeping @ 10:58:43 Procedure Log Time Note 10:10:42 Patient Height : 73 inches 10:10:49 Patient Weight : 134 lbs 10:11:36 Time tracking: Regular hours (M-F 7:00 - 5:00) 10:11:49 Signed procedure consent form obtained from patient. 10:11:55 H&P Date Dictated: 11/20/2017 Within 30 days and on chart.. 10:11:59 Pre-procedure instructions explained to patient. 10:12:00 Pre-op teaching completed and patient verbalized understanding. 10:12:02 Family in waiting room. 10:12:05 Patient NPO since Midnight. 10:12:24 Patient allergic to Vicodin 10:12:30 Is the patient allergic to Iodine/contrast media? No. 10:12:36 Is patient on blood thinner?No 10:17:27 Patient diabetic? No. 10:17:29 - 10:17:30 ----Pre-sedation anethsthesia assessment.---- 10:17:34 Previous problem with sedation/anesthesia? No ? 10:17:38 Snore? Yes 10:17:41 Sleep apnea? No 10:17:42 Deviated septum? No 10:17:45 Opens mouth fully? Yes 10:17:48 Sticks out tongue? Yes 10:17:52 Airway obstruction? Yes cad 10:17:57 Dentures? No ? 10:17:59 - 10:18:08 IV patent on arrival in left hand with 0.45%NaCl at [facility]. 10:18:12 - 10:18:20 Use device set IR Diagnostic 10:18:23 Tegaderm 4 x 4 ([id number]) opened to sterile field. 10:18:24 Sterile Angiographic Pack opened to sterile field. 10:18:25 Bag Decanter (2002S) opened to sterile field. 10:20:19 ECG and BP/O2 sat monitors applied to patient. 10:20:30 Plan of Care:Hemodynamics will remain stable., Cardiac rhythm will remain stable., Comfort level will be maintained., Respiratory function will remain adequate., Patient/ family verbilizes understanding of procedure., Procedure tolerated without complication., Recovers from procedure without complications.. 10:20:36 Vital chart was started 10:20:51 Baseline sample Acquired. 10:20:56 Full Disclosure recording started 10:21:02 Baseline sample Acquired. 10:21:05 - 10:21:45 Right chest area was prepped with chlora-prep and draped in sterile fashion 10:21:48 - 10:33:25 Physician arrived 10:33:26 --------ALL STOP TIME OUT------ 10:33:27 Final Timeout: patient, procedure, and site verified with staff and physician. All members of the team are in agreement. 10:34:19 Procedure started. 10:34:28 Oxygen 3 l/min etCO2 Nasal cannula was administered by Urszula Birmingham RN; Per protocol; 10:34:47 Lidocaine 1% 20ml vial added to field was administered by Adan Duran MD; Per protocol; 10:35:04 Versed 2 mg I.V. was administered by Urszula Birmingham RN; for sedation; 10:35:13 Fentanyl 50 mcg I.V. was administered by Urszula Birmingham RN; for sedation; 10:35:26 Local anesthetic to Chest area with Lidocaine 1% by Adan Duran MD.INITIAL ACCESS ONLY 10:36:59 Fentanyl 50 mcg I.V. was administered by Urszula Birmingham RN; for sedation; 10:45:40 unable to get pleurx drain out. no fluoro used. 10:50:05 Fluoroscopy time 00.00 minutes. 10:50:09 Fluoroscopy dose: 0 mGy 10:50:09 Flurop Dose total: 0 10:50:14 Procedure and supply charges have been captured, reviewed, submitted an d are correct. 10:58:32 Effectiveness of Versed delivered @ 10:35:04 is: Fully awake 10:58:39 Effectiveness of Fentanyl delivered @ 10:35:13 is: Fully awake 10:58:43 Effectiveness of Fentanyl delivered @ 10:36:59 is: Mostly sleeping 10:59:14 Procedure ended.(Physican Out) 10:59:34 Vital chart was stopped Device Usage Item Name Manufacture Quantity Catalog Hospital Part Current Minimal Lot# / Number Charge Number Stock Stock Serial# Code Tegaderm 4 x 3M 1 [id number] 4 (1626W) Sterile Cardinal 1 [id number] 5 Angiographic Health Pack Bag Decanter Microtek 1 [id number] () [employer] Signature Audit [place] Stage Time Signature Unsigned Intra-Procedure 11/20/2017 Shania Lynne 10:59:32 AM RT(R) [facility] [address] [place] [address]
[~2017-11-20 07:45] MED LIST changes: -RANITIDINE HCL150 M1
[2017-11-20 08:07] LABS: BASOPHILS 0.3 % (0-2); EOSINOPHILS 5.8 % (0-7); HEMATOCRIT 47.7 % (42.0-54.0); HEMOGLOBIN 15.9 g/dL (13.5-17.5); IMMATURE GRANULOCYTES 0.5 % (0-5); LYMPHOCYTES 22.8 % (15-50); MCH 30.3 pg (26.0-34.0); MCHC 33.3 g/dL (31.0-37.0); MEAN PLATELET VOLUME 8.8 fL (7.4-10.4); MONOCYTES 9.5 % (2-11); NEUTROPHILS 61.1 % (40-80); RBC 5.24 10x6/uL (4.20-6.10); RDW 14.1 % (11.5-14.5); WBC 9.4 10x3/uL (4.8-10.8)
[2017-11-20 08:09] LABS: PLATELET COUNT 381 10x3/uL (130-400)
[2017-11-20 08:18] LABS: ANION GAP 8.3 mmol/L (8-16); CALCIUM 10.2 mg/dL (8.5-10.1); CARBON DIOXIDE 32.7 mmol/L (21.0-32.0); CREATININE - SERUM 1.2 mg/dL (0.6-1.3); PROTIME 12.8 SECONDS (11.6-15.0)
[2017-11-20 08:19] LABS: APTT 29.6 SECONDS (22.8-39.4)
[2017-11-20] MEDS ORDERED: IPRAT-ALBUT 0.5-3 ML UPD (09:01)
[2017-11-20] MEDS ORDERED: RANITIDINE HCL150 M1 (09:02)
[2017-11-20 09:19] VITALS: BP 137/90; Ht 185.4 cm; Wt 60.9 kg
== END 2017-11-20 20:05 | disposition home or self-care (01) ==
LOC: D.SP 07:45 → D.RAD 10:00 → D.MS 15:24 → D.SP 15:24
PROVIDERS: Specialist
DX: Z46.82 Encounter for fitting and adjustment of non-vascular catheter (principal); Z53.9 Procedure and treatment not carried out, unspecified reason; Z01.812 Encounter for preprocedural laboratory examination

== ENCOUNTER 2017-11-20 16:00 | Day surgery (SDC) | payer MEDICARE ==
[~2017-11-20 16:00] MED LIST changes: +RANITIDINE HCL150 M1
== END 2017-11-20 23:59 | disposition home or self-care (01) ==
LOC: D.OPS 16:00
DX: Z46.82 Encounter for fitting and adjustment of non-vascular catheter (principal); Z01.812 Encounter for preprocedural laboratory examination

== ENCOUNTER 2017-11-29 12:21 | Inpatient (IN) | payer MEDICARE ==
[~2017-11-29] VITALS: Ht 185.4 cm; Wt 64.4 kg
--- NOTE | ~2017-11-29 | EC ---
PATIENT:SUZETTE QUIÑONES DATE OF SERVICE: 11/29/17 SEX: M MEDICAL RECORD: [id number] DATE OF : [birth year] LOCATION:D.M3 D.120 AGE OF PATIENT: 72 ADMISSION DATE: 11/29/17 REFERRING PHYSICIAN: INTERPRETING PHYSICIAN: GERONIMO HAUSER MD ECHOCARDIOGRAM REPORT ECHO CHARGES 4 ECHO COMPLETE Date: 12/02/17 CLINICAL DIAGNOSIS: AFIB ECHOCARDIOGRAPHIC MEASUREMENTS (adult normal given) AC root (d.<3.7cm) 2.9 cm LV Septum d (<1.2 cm> 1.3 cm Valve Excursion 1.0 cm LV Septum (systole) 1.6 cm Left Atria (s.<4.0cm> 3.5 cm LVPW d(<1.2cm) 0.9 cm RV (d.<2.3cm) 2.3 cm LVPW (sytole) 0.9 cm LV diastole(<5.6CM) 5.1 cm MV E-F(>70mm/sec) cm LV systole 4.2 cm LVOT Diameter 1.7 cm MV exc.(>10mm) cm Est.ejection fraction (50-75%) % DOPPLER: LVIT cm/sec A 92 cm/sec E 49 cm/sec LA cm/sec RVSP 18.9 mmHg LVOT 95 cm/sec AOP1/2T m/s Asc. Ao 103 cm/sec RVOT 79 cm/sec RA cm/sec PA 74 cm/sec AV Gradient Peak 4.3 mmHg AV Mean 1.9 mmHg AV Area 2.5 cm MV Gradient Peak 4.3 mmHg MV Mean 2.5 mmHg MV Area cm COMMENTS: Musical Instrument Maker: Lon [facility] Pilot Control Operator: 4 Dr. Hauser TAPE# PACS Pericardial Effusion N DATE OF SERVICE: This is a technically difficult procedure. FINDINGS: 1. The left ventricle shows evidence of left ventricular hypertrophy. Ejection fraction appears to be low normal at 45% to 50%. There is no obvious regional wall motion abnormality. Inflow characteristics are consistent with diastolic dysfunction. 2. The right ventricle is normal. ECHOCARDIOGRAM REPORT [id number] SUZETTE QUIÑONES 3. The left atrium is normal. 4. The aortic valve is grossly normal. 5. The mitral valve and tricuspid valves are normal. There is no obvious major valvular abnormality. There is no obvious pericardial effusion, although it is difficult to visualize. Overall, this is a normal echocardiogram with the exception of evidence of diastolic dysfunction. TRANSINT:[id number] Voice Confirmation ID: [id number] DOCUMENT ID: [id number] GERONIMO HAUSER MD at 1348 CC: [id number] DICTATION DATE: 12/03/17 1008 MANAGER SOUND: 12/03/17 1347 ADM IN [facility] [address] [place] [address]
--- NOTE | ~2017-11-29 | CN ---
PATIENT NAME:SUZETTE COX MEDICAL RECORD: [id number] : 47 LOCATION:D.M3 D.1208 ADMIT DATE: 11/29/17 ACCOUNT: [id number] CONSULTING PHYSICIAN: GLENN GUDINO MD REFERRING PHYSICIAN: DEVI LOVE MD DATE OF CONSULTATION: 12/07/2017 CONSULT REQUESTING PHYSICIAN: Emerita Mccain MD REASON FOR CONSULTATION: Acute shortness of breath. HISTORY OF PRESENT ILLNESS: Mr. Cox is a 72-year-old gentleman who has a history of COPD, chronic pancreatitis and home oxygen dependent. The patient was admitted on 11/29/2017 with abdominal pain with lutrz-ux-xozqvtf pancreatitis. He was also seen by Dr. Ramos. Today, the patient became severely dyspneic. His oxygen requirement increased from 3-9 liters. Now, he is feeling better. Denies any chest pain, no fever and chill, no night sweats, no green color sputum production. REVIEW OF SYSTEMS: As in history of present illness. PAST MEDICAL HISTORY: 1. COPD, home oxygen dependent. 2. Hypertension. 3. Hyperlipidemia. 4. Peripheral neuropathy. 5. BPH. 6. Chronic pancreatitis. 7. Gastroesophageal reflux disease. PAST SURGICAL HISTORY: He has a T&A. ALLERGIES: HE IS ALLERGIC TO ACETAMINOPHEN AND HYDROCODONE. MEDICATIONS: The Skimm is reviewed. PERSONAL AND SOCIAL HISTORY: The patient is a current everyday smoker. He is a nondrinker. FAMILY HISTORY: Noncontributory. PHYSICAL EXAMINATION: GENERAL: Now, the patient is sitting in bed. He is not in acute distress. VITAL SIGNS: The blood pressure is 151/84, pulse is 112, respirations are 18, temperature 97.5, SpO2 97%. He is on 8-liter oxymizer. HEENT: Conjunctivae are pink. Sclerae are not icteric. NECK: Supple, no JVD. CHEST: Excursion equally on both sides. No wheeze, no rales. HEART: Rhythm regular, normal sound, no murmur. ABDOMEN: Soft, bowel sounds present. No hepatosplenomegaly. RECTAL: Deferred. EXTREMITIES: No cyanosis, no clubbing. There is no pedal edema. CENTRAL NERVOUS SYSTEM: The patient is awake and alert. There are no obvious cranial nerve abnormalities. The gait was not tested. CONSULT REPORT [id number] SUZETTE COX IMAGING: Chest radiograph on 12/07/2017, there is mild interstitial prominence. No large pleural effusion, no infiltrate. LABORATORY DATA: D-dimer is a 2.59. ABG: The pH is 7.42, pCO2 47.3, pO2 is 86, bicarbonate is 30.9. This was done on 8 liters oxygen. IMPRESSION: 1. Eeddi-ab-dzzvsne hypoxic respiratory failure. 2. Chronic obstructive pulmonary disease exacerbation, rule out fluid overload, rule out pulmonary edema. 3. Clful-qf-xxhsglb pancreatitis. 4. Positive D-dimer, rule out pulmonary thromboembolism. 5. Tobacco dependence syndrome. 6. Gastroesophageal reflux disease. RECOMMENDATIONS: 1. I will get CTA of the chest. 2. Start on Brovana and budesonide nebulizer. Start on ipratropium nebulizer. Continue Xopenex nebulizer. 3. Supplemental oxygen and titrate to SpO2 above 90%. 4. The patient just completed a course of Zithromax. Continue Flagyl. Further recommendation of CTA of the chest. I will check the proBNP. TRANSINT:[id number] Voice Confirmation ID: [id number] DOCUMENT ID: [id number] GLENN GUDINO MD CC: [id number] DICTATION DATE: 12/07/17 1729 AEROBICS INSTRUCTOR: 12/08/17 0134 ADM IN [facility] [address] [place] [id number]
[2017-11-29 13:12] LABS: BASOPHILS 0.2 % (0-2); EOSINOPHILS 0.4 % (0-7); HEMATOCRIT 53.7 % (42.0-54.0); HEMOGLOBIN 18.4 g/dL (13.5-17.5); IMMATURE GRANULOCYTES 0.3 % (0-5); LYMPHOCYTES 8.2 % (15-50); MCH 30.3 pg (26.0-34.0); MCHC 34.3 g/dL (31.0-37.0); MCV 88.5 fL (80.0-100.0); MONOCYTES 4.9 % (2-11); PLATELET COUNT 310 10x3/uL (130-400); RBC 6.07 10x6/uL (4.20-6.10); RDW 13.9 % (11.5-14.5); WBC 10.3 10x3/uL (4.8-10.8)
[2017-11-29 13:27] LABS: ALBUMIN 2.9 g/dL (3.4-5.0); ALKALINE PHOSPHATASE 147 U/L (46-116); ALT (SGPT) 18 U/L (10-68); CALC OSMOLALITY 272 mosm/kg (275-300); CALCIUM 10.1 mg/dL (8.5-10.1); CHLORIDE - SERUM 101 mmol/L (98-107); GLUCOSE 146 mg/dL (74-106); POTASSIUM - SERUM 4.1 mmol/L (3.5-5.1); PROTEIN - SERUM 8.3 g/dL (6.4-8.2); SODIUM 135 mmol/L (136-145); UREA NITROGEN 13 mg/dL (7-18); eGFR NON AFRICAN AMERICAN 78 mL/min (90-120)
[2017-11-29 13:35] LABS: AMYLASE - SERUM 383 U/L (25-115)
[2017-11-29 13:40] LABS: LIPASE 2823 U/L (73-393)
[2017-11-29 17:18] VITALS: BP 166/94; BMI 18.2
[2017-11-29 20:00] VITALS: BP 140/89
[2017-11-30] VITALS: BP 156/73
[2017-11-30 07:14] LABS: BASOPHILS 0.1 % (0-2); EOSINOPHILS 0.1 % (0-7); HEMATOCRIT 52.8 % (42.0-54.0); HEMOGLOBIN 17.5 g/dL (13.5-17.5); IMMATURE GRANULOCYTES 0.4 % (0-5); LYMPHOCYTES 6.2 % (15-50); MCH 30.1 pg (26.0-34.0); MCHC 33.1 g/dL (31.0-37.0); MCV 90.9 fL (80.0-100.0); MEAN PLATELET VOLUME 9.3 fL (7.4-10.4); MONOCYTES 5.5 % (2-11); NEUTROPHILS 87.7 % (40-80); PLATELET COUNT 414 10x3/uL (130-400); RBC 5.81 10x6/uL (4.20-6.10); RDW 14.6 % (11.5-14.5); WBC 14.1 10x3/uL (4.8-10.8)
[2017-11-30 07:36] LABS: ALBUMIN 2.6 g/dL (3.4-5.0); ALKALINE PHOSPHATASE 129 U/L (46-116); BILIRUBIN - TOTAL 0.35 mg/dL (0.2-1.3); CALC OSMOLALITY 278 mosm/kg (275-300); CALCIUM 9.8 mg/dL (8.5-10.1); CARBON DIOXIDE 27.4 mmol/L (21.0-32.0); CHLORIDE - SERUM 104 mmol/L (98-107); CREATININE - SERUM 0.9 mg/dL (0.6-1.3); GLUCOSE 113 mg/dL (74-106); MAGNESIUM - SERUM 2.6 mg/dL (1.8-2.4); PHOSPHOROUS 5.3 mg/dL (2.5-4.9); POTASSIUM - SERUM 4.3 mmol/L (3.5-5.1); PROTEIN - SERUM 7.3 g/dL (6.4-8.2); SODIUM 139 mmol/L (136-145); UREA NITROGEN 12 mg/dL (7-18); eGFR NON AFRICAN AMERICAN 88 mL/min (90-120)
[2017-11-30 07:37] LABS: ALT (SGPT) 12 U/L (10-68)
[2017-11-30 08:04] VITALS: BP 156/90
[2017-11-30 10:49] VITALS: BMI 18.2
[2017-11-30 12:12] LABS: PRE-ALBUMIN 16.5 mg/dL (18.0-35.7)
[2017-11-30 16:00] VITALS: BP 148/101
[2017-11-30 17:36] VITALS: BP 159/99
[2017-11-30 20:28] VITALS: BP 156/95
[2017-12-01 00:42] VITALS: BP 144/83
[2017-12-01 06:12] LABS: BASOPHILS 0.2 % (0-2); EOSINOPHILS 2.8 % (0-7); HEMATOCRIT 46.7 % (42.0-54.0); HEMOGLOBIN 15.2 g/dL (13.5-17.5); IMMATURE GRANULOCYTES 0.4 % (0-5); MCH 29.7 pg (26.0-34.0); MCHC 32.5 g/dL (31.0-37.0); MCV 91.4 fL (80.0-100.0); MEAN PLATELET VOLUME 9.2 fL (7.4-10.4); MONOCYTES 8.3 % (2-11); NEUTROPHILS 76.3 % (40-80); PLATELET COUNT 344 10x3/uL (130-400); RBC 5.11 10x6/uL (4.20-6.10); RDW 14.6 % (11.5-14.5); WBC 11.4 10x3/uL (4.8-10.8)
[2017-12-01 06:37] LABS: ALBUMIN 2.3 g/dL (3.4-5.0); ALKALINE PHOSPHATASE 98 U/L (46-116); ALT (SGPT) 12 U/L (10-68); BILIRUBIN - TOTAL 0.32 mg/dL (0.2-1.3); CALC OSMOLALITY 280 mosm/kg (275-300); CALCIUM 9.6 mg/dL (8.5-10.1); CHLORIDE - SERUM 106 mmol/L (98-107); CREATININE - SERUM 0.8 mg/dL (0.6-1.3); GLUCOSE 78 mg/dL (74-106); LIPASE 1280 U/L (73-393); PROTEIN - SERUM 6.4 g/dL (6.4-8.2); SODIUM 141 mmol/L (136-145); eGFR NON AFRICAN AMERICAN > 90 mL/min (90-120)
[2017-12-01 06:38] LABS: INR 1.08 (0.85-1.17); PROTIME 13.6 SECONDS (11.6-15.0)
[2017-12-01 06:45] LABS: AMYLASE - SERUM 400 U/L (25-115); UREA NITROGEN 16 mg/dL (7-18)
[2017-12-01 07:00] VITALS: BP 131/80
[2017-12-01 11:21] VITALS: BP 151/81
[2017-12-01 11:56] LABS: APPEARANCE CLEAR (CLEAR); COLOR YELLOW (YELLOW)
[2017-12-01 11:57] LABS: BILIRUBIN NEGATIVE (NEGATIVE); GLUCOSE NEGATIVE (NEGATIVE); KETONE SMALL mg/dL (NEGATIVE); NITRITE NEGATIVE (NEGATIVE); PROTEIN TRACE mg/dL (NEGATIVE); UROBILINOGEN NORMAL (NORMAL)
[2017-12-01 11:58] LABS: BACTERIA FEW /hpf (NONE SEEN); EPITHELIAL CELLS 0-5 /hpf (0-5); HYALINE CAST 0-5 /lpf (NONE SEEN); MUCUS <1+ /lpf (NONE SEEN); RED CELLS - URINE 0-5 /hpf (0-5); WHITE CELLS - URINE 0-5 /hpf (0-5)
[2017-12-01 12:40] LABS: T4 THYROXIN - FREE 1.01 ng/dL (0.76-1.46); THYROID STIMULATING HORMONE 1.02 uIU/mL (0.36-3.74)
[2017-12-01 16:02] VITALS: Ht 185.4 cm; Wt 64.4 kg
[2017-12-01 16:05] VITALS: BP 148/92
[2017-12-01 19:45] VITALS: BP 151/85
[2017-12-02 01:38] VITALS: BP 166/116
[2017-12-02 05:37] LABS: BASOPHILS 0.2 % (0-2); EOSINOPHILS 2.4 % (0-7); HEMATOCRIT 44.6 % (42.0-54.0); HEMOGLOBIN 14.7 g/dL (13.5-17.5); IMMATURE GRANULOCYTES 0.3 % (0-5); LYMPHOCYTES 10.7 % (15-50); MCH 30.1 pg (26.0-34.0); MCV 91.4 fL (80.0-100.0); MEAN PLATELET VOLUME 9.2 fL (7.4-10.4); MONOCYTES 9.4 % (2-11); PLATELET COUNT 332 10x3/uL (130-400); RBC 4.88 10x6/uL (4.20-6.10); RDW 14.6 % (11.5-14.5); WBC 10.9 10x3/uL (4.8-10.8)
[2017-12-02 06:06] LABS: ALBUMIN 2.4 g/dL (3.4-5.0); ALKALINE PHOSPHATASE 102 U/L (46-116); ALT (SGPT) 14 U/L (10-68); BILIRUBIN - TOTAL 0.36 mg/dL (0.2-1.3); CALC OSMOLALITY 279 mosm/kg (275-300); CALCIUM 9.2 mg/dL (8.5-10.1); CARBON DIOXIDE 26.8 mmol/L (21.0-32.0); CHLORIDE - SERUM 105 mmol/L (98-107); CREATININE - SERUM 0.8 mg/dL (0.6-1.3); GLUCOSE 84 mg/dL (74-106); LIPASE 924 U/L (73-393); PROTEIN - SERUM 6.7 g/dL (6.4-8.2); SODIUM 140 mmol/L (136-145); UREA NITROGEN 17 mg/dL (7-18); eGFR NON AFRICAN AMERICAN > 90 mL/min (90-120)
[2017-12-02 06:11] LABS: POTASSIUM - SERUM 4.7 mmol/L (3.5-5.1)
[2017-12-02 06:20] VITALS: BP 154/101
[2017-12-02 08:18] VITALS: BP 153/79
[2017-12-02 11:38] VITALS: BP 164/80
[2017-12-02 15:11] VITALS: BP 160/88
[2017-12-02 20:05] VITALS: BP 148/85
[2017-12-03 01:28] VITALS: BP 148/79
[2017-12-03 04:38] VITALS: BP 159/90
[2017-12-03 05:21] LABS: BASOPHILS 0.3 % (0-2); EOSINOPHILS 3.4 % (0-7); HEMATOCRIT 42.2 % (42.0-54.0); HEMOGLOBIN 13.7 g/dL (13.5-17.5); IMMATURE GRANULOCYTES 0.4 % (0-5); LYMPHOCYTES 12.7 % (15-50); MCH 29.6 pg (26.0-34.0); MCHC 32.5 g/dL (31.0-37.0); MCV 91.1 fL (80.0-100.0); MEAN PLATELET VOLUME 9.4 fL (7.4-10.4); MONOCYTES 9.4 % (2-11); NEUTROPHILS 73.8 % (40-80); RBC 4.63 10x6/uL (4.20-6.10); RDW 14.4 % (11.5-14.5)
[2017-12-03 05:31] LABS: PLATELET COUNT 253 10x3/uL (130-400); WBC 7.6 10x3/uL (4.8-10.8)
[2017-12-03 05:40] LABS: ALBUMIN 2.3 g/dL (3.4-5.0); ALKALINE PHOSPHATASE 91 U/L (46-116); ALT (SGPT) 12 U/L (10-68); BILIRUBIN - TOTAL 0.29 mg/dL (0.2-1.3); CALC OSMOLALITY 280 mosm/kg (275-300); CALCIUM 8.8 mg/dL (8.5-10.1); CHLORIDE - SERUM 106 mmol/L (98-107); CREATININE - SERUM 0.8 mg/dL (0.6-1.3); GLUCOSE 103 mg/dL (74-106); LIPASE 1176 U/L (73-393); PROTEIN - SERUM 6.2 g/dL (6.4-8.2); SODIUM 142 mmol/L (136-145); UREA NITROGEN 6 mg/dL (7-18); eGFR NON AFRICAN AMERICAN > 90 mL/min (90-120)
[2017-12-03 07:44] VITALS: BP 156/92
[2017-12-03 12:02] VITALS: BP 147/92
[2017-12-03 16:35] VITALS: BP 168/91
[2017-12-03 19:50] VITALS: BP 157/97
[2017-12-04] VITALS: BP 155/86
[2017-12-04 04:25] VITALS: BP 150/84
[2017-12-04 04:42] LABS: BASOPHILS 0.1 % (0-2); EOSINOPHILS 3.8 % (0-7); HEMOGLOBIN 14.4 g/dL (13.5-17.5); IMMATURE GRANULOCYTES 0.3 % (0-5); LYMPHOCYTES 17.9 % (15-50); MCH 29.8 pg (26.0-34.0); MCHC 32.7 g/dL (31.0-37.0); MCV 91.1 fL (80.0-100.0); MEAN PLATELET VOLUME 9.4 fL (7.4-10.4); MONOCYTES 9.3 % (2-11); NEUTROPHILS 68.6 % (40-80); PLATELET COUNT 331 10x3/uL (130-400); RBC 4.83 10x6/uL (4.20-6.10); RDW 14.4 % (11.5-14.5); WBC 7.5 10x3/uL (4.8-10.8)
[2017-12-04 04:54] LABS: ALBUMIN 2.3 g/dL (3.4-5.0); ALKALINE PHOSPHATASE 96 U/L (46-116); ALT (SGPT) 13 U/L (10-68); BILIRUBIN - TOTAL 0.27 mg/dL (0.2-1.3); CALC OSMOLALITY 277 mosm/kg (275-300); CARBON DIOXIDE 31.5 mmol/L (21.0-32.0); CHLORIDE - SERUM 106 mmol/L (98-107); CREATININE - SERUM 0.8 mg/dL (0.6-1.3); GLUCOSE 103 mg/dL (74-106); POTASSIUM - SERUM 3.7 mmol/L (3.5-5.1); PROTEIN - SERUM 6.4 g/dL (6.4-8.2); SODIUM 141 mmol/L (136-145); eGFR NON AFRICAN AMERICAN > 90 mL/min (90-120)
[2017-12-04 05:03] LABS: LIPASE 1695 U/L (73-393); UREA NITROGEN 4 mg/dL (7-18)
[2017-12-04 07:17] VITALS: BP 151/97
[2017-12-04 11:01] VITALS: BP 152/89
[2017-12-04 15:00] VITALS: BP 159/90
[2017-12-04 19:26] VITALS: BP 174/92
[2017-12-05 04:54] LABS: BASOPHILS 0.1 % (0-2); EOSINOPHILS 3.3 % (0-7); HEMATOCRIT 41.8 % (42.0-54.0); HEMOGLOBIN 13.8 g/dL (13.5-17.5); IMMATURE GRANULOCYTES 0.3 % (0-5); LYMPHOCYTES 14.8 % (15-50); MCH 29.9 pg (26.0-34.0); MCV 90.5 fL (80.0-100.0); MEAN PLATELET VOLUME 9.5 fL (7.4-10.4); NEUTROPHILS 71.5 % (40-80); PLATELET COUNT 308 10x3/uL (130-400); RBC 4.62 10x6/uL (4.20-6.10); RDW 14.3 % (11.5-14.5); WBC 6.9 10x3/uL (4.8-10.8)
[2017-12-05 05:17] LABS: ALBUMIN 2.2 g/dL (3.4-5.0); ALKALINE PHOSPHATASE 84 U/L (46-116); ALT (SGPT) 12 U/L (10-68); BILIRUBIN - TOTAL 0.23 mg/dL (0.2-1.3); CALC OSMOLALITY 263 mosm/kg (275-300); CALCIUM 8.9 mg/dL (8.5-10.1); CHLORIDE - SERUM 102 mmol/L (98-107); CREATININE - SERUM 0.7 mg/dL (0.6-1.3); GLUCOSE 116 mg/dL (74-106); LIPASE 1346 U/L (73-393); POTASSIUM - SERUM 3.4 mmol/L (3.5-5.1); PROTEIN - SERUM 6.2 g/dL (6.4-8.2); SODIUM 133 mmol/L (136-145); UREA NITROGEN 4 mg/dL (7-18); eGFR NON AFRICAN AMERICAN > 90 mL/min (90-120)
[2017-12-05 06:40] VITALS: BP 153/85
[2017-12-05 08:19] VITALS: BP 134/76
[2017-12-05 11:52] VITALS: BP 177/88
[2017-12-05 16:10] VITALS: BP 155/94
[2017-12-05 20:00] VITALS: BP 146/84
[2017-12-06] VITALS: BP 152/88
[2017-12-06 04:00] VITALS: BP 155/87
[2017-12-06 06:24] LABS: BASOPHILS 0.2 % (0-2); EOSINOPHILS 4.2 % (0-7); HEMATOCRIT 41.9 % (42.0-54.0); HEMOGLOBIN 13.7 g/dL (13.5-17.5); IMMATURE GRANULOCYTES 0.5 % (0-5); MCH 29.7 pg (26.0-34.0); MCHC 32.7 g/dL (31.0-37.0); MCV 90.7 fL (80.0-100.0); MEAN PLATELET VOLUME 9.7 fL (7.4-10.4); MONOCYTES 12.3 % (2-11); NEUTROPHILS 63.8 % (40-80); PLATELET COUNT 297 10x3/uL (130-400); RBC 4.62 10x6/uL (4.20-6.10); RDW 14.4 % (11.5-14.5); WBC 6.2 10x3/uL (4.8-10.8)
[2017-12-06 06:26] LABS: ALBUMIN 2.2 g/dL (3.4-5.0); ALKALINE PHOSPHATASE 83 U/L (46-116); ALT (SGPT) 13 U/L (10-68); BILIRUBIN - TOTAL 0.24 mg/dL (0.2-1.3); C-REACTIVE PROTEIN 2.2 mg/dL (0.0-0.9); CALCIUM 8.8 mg/dL (8.5-10.1); CARBON DIOXIDE 31.6 mmol/L (21.0-32.0); CHLORIDE - SERUM 103 mmol/L (98-107); CREATININE - SERUM 0.6 mg/dL (0.6-1.3); GLUCOSE 112 mg/dL (74-106); LIPASE 1477 U/L (73-393); POTASSIUM - SERUM 3.6 mmol/L (3.5-5.1); PRO BNP 990 pg/mL (0-125); PROTEIN - SERUM 6.3 g/dL (6.4-8.2); SODIUM 139 mmol/L (136-145); eGFR NON AFRICAN AMERICAN > 90 mL/min (90-120)
[2017-12-06 06:28] LABS: CALC OSMOLALITY 276 mosm/kg (275-300); UREA NITROGEN 6 mg/dL (7-18)
[2017-12-06 09:00] VITALS: BP 158/95
[2017-12-06 12:00] VITALS: BP 141/92
[2017-12-06 16:00] VITALS: BP 156/91
[2017-12-06 20:02] VITALS: BP 175/103
[2017-12-07] VITALS (7 sets, daily range): BP systolic 146–164; BP diastolic 82–114
[2017-12-07 05:29] LABS: BASOPHILS 0.3 % (0-2); EOSINOPHILS 4.4 % (0-7); HEMATOCRIT 43.5 % (42.0-54.0); HEMOGLOBIN 14.4 g/dL (13.5-17.5); IMMATURE GRANULOCYTES 0.4 % (0-5); LYMPHOCYTES 15.3 % (15-50); MCH 29.9 pg (26.0-34.0); MCHC 33.1 g/dL (31.0-37.0); MCV 90.2 fL (80.0-100.0); MEAN PLATELET VOLUME 9.7 fL (7.4-10.4); MONOCYTES 11.4 % (2-11); NEUTROPHILS 68.2 % (40-80); RBC 4.82 10x6/uL (4.20-6.10); RDW 14.3 % (11.5-14.5); WBC 7.3 10x3/uL (4.8-10.8)
[2017-12-07 05:32] LABS: PLATELET COUNT 416 10x3/uL (130-400)
[2017-12-07 06:05] LABS: ALBUMIN 2.5 g/dL (3.4-5.0); ALKALINE PHOSPHATASE 88 U/L (46-116); ALT (SGPT) 11 U/L (10-68); AMYLASE - SERUM 119 U/L (25-115); BILIRUBIN - TOTAL 0.22 mg/dL (0.2-1.3); C-REACTIVE PROTEIN 1.4 mg/dL (0.0-0.9); CALCIUM 9.3 mg/dL (8.5-10.1); CREATININE - SERUM 0.6 mg/dL (0.6-1.3); GLUCOSE 124 mg/dL (74-106); LIPASE 1391 U/L (73-393); PROTEIN - SERUM 6.9 g/dL (6.4-8.2); eGFR NON AFRICAN AMERICAN > 90 mL/min (90-120)
[2017-12-07 06:09] LABS: UREA NITROGEN 8 mg/dL (7-18)
[2017-12-07 06:15] LABS: CALC OSMOLALITY 274 mosm/kg (275-300); CARBON DIOXIDE 30.1 mmol/L (21.0-32.0); CHLORIDE - SERUM 100 mmol/L (98-107); POTASSIUM - SERUM 3.9 mmol/L (3.5-5.1); SODIUM 138 mmol/L (136-145)
[2017-12-07 16:16] LABS: CKMB 0.6 U/L (0.0-3.6); CREATINE KINASE 19 UL (21-232); TROPONIN-I < 0.017 ng/mL (0.000-0.060)
[2017-12-07 22:17] LABS: CKMB 0.5 U/L (0.0-3.6); CREATINE KINASE 17 UL (21-232); TROPONIN-I < 0.017 ng/mL (0.000-0.060)
[2017-12-08 00:55] VITALS: BP 156/77
[2017-12-08 05:37] LABS: BASOPHILS 0.3 % (0-2); EOSINOPHILS 4.4 % (0-7); IMMATURE GRANULOCYTES 0.3 % (0-5); LYMPHOCYTES 16.3 % (15-50); MCH 29.5 pg (26.0-34.0); MCHC 32.6 g/dL (31.0-37.0); MCV 90.5 fL (80.0-100.0); MEAN PLATELET VOLUME 9.7 fL (7.4-10.4); MONOCYTES 11.3 % (2-11); NEUTROPHILS 67.4 % (40-80); PLATELET COUNT 349 10x3/uL (130-400); RBC 4.75 10x6/uL (4.20-6.10); RDW 14.3 % (11.5-14.5)
[2017-12-08 06:22] LABS: ALBUMIN 2.5 g/dL (3.4-5.0); ALKALINE PHOSPHATASE 80 U/L (46-116); BILIRUBIN - TOTAL 0.19 mg/dL (0.2-1.3); CALC OSMOLALITY 278 mosm/kg (275-300); CALCIUM 9.6 mg/dL (8.5-10.1); CARBON DIOXIDE 31.9 mmol/L (21.0-32.0); CHLORIDE - SERUM 101 mmol/L (98-107); CKMB 0.5 U/L (0.0-3.6); CREATINE KINASE 15 UL (21-232); GLUCOSE 111 mg/dL (74-106); POTASSIUM - SERUM 3.5 mmol/L (3.5-5.1); PROTEIN - SERUM 6.8 g/dL (6.4-8.2); SODIUM 140 mmol/L (136-145); UREA NITROGEN 9 mg/dL (7-18)
[2017-12-08 06:24] LABS: ALT (SGPT) 15 U/L (10-68); CREATININE - SERUM 0.8 mg/dL (0.6-1.3); TROPONIN-I < 0.017 ng/mL (0.000-0.060); eGFR NON AFRICAN AMERICAN > 90 mL/min (90-120)
[2017-12-08 06:36] VITALS: BP 134/73
[2017-12-08 12:17] VITALS: BP 132/82
[2017-12-08 17:01] VITALS: BP 117/59
[2017-12-08 19:14] VITALS: BP 120/80
[2017-12-09 01:21] VITALS: BP 149/90
[2017-12-09 05:33] LABS: BASOPHILS 0.4 % (0-2); EOSINOPHILS 5.1 % (0-7); HEMATOCRIT 43.8 % (42.0-54.0); HEMOGLOBIN 14.4 g/dL (13.5-17.5); IMMATURE GRANULOCYTES 0.5 % (0-5); LYMPHOCYTES 22.5 % (15-50); MCHC 32.9 g/dL (31.0-37.0); MCV 91.3 fL (80.0-100.0); MEAN PLATELET VOLUME 9.6 fL (7.4-10.4); MONOCYTES 13.4 % (2-11); NEUTROPHILS 58.1 % (40-80); PLATELET COUNT 391 10x3/uL (130-400); RDW 14.3 % (11.5-14.5); WBC 7.5 10x3/uL (4.8-10.8)
[2017-12-09 05:46] LABS: ALBUMIN 2.5 g/dL (3.4-5.0); ALKALINE PHOSPHATASE 84 U/L (46-116); ALT (SGPT) 16 U/L (10-68); BILIRUBIN - TOTAL 0.31 mg/dL (0.2-1.3); CALCIUM 9.5 mg/dL (8.5-10.1); CARBON DIOXIDE 32.2 mmol/L (21.0-32.0); CHLORIDE - SERUM 101 mmol/L (98-107); CREATININE - SERUM 0.8 mg/dL (0.6-1.3); GLUCOSE 114 mg/dL (74-106); LIPASE 1389 U/L (73-393); PROTEIN - SERUM 6.9 g/dL (6.4-8.2); SODIUM 138 mmol/L (136-145); eGFR NON AFRICAN AMERICAN > 90 mL/min (90-120)
[2017-12-09 05:47] LABS: CALC OSMOLALITY 276 mosm/kg (275-300); POTASSIUM - SERUM 4.2 mmol/L (3.5-5.1); UREA NITROGEN 12 mg/dL (7-18)
[2017-12-09 06:28] VITALS: BP 149/88
[2017-12-09 08:00] VITALS: BP 130/86
[2017-12-09 11:11] VITALS: BP 139/82
[2017-12-09 16:13] VITALS: BP 141/76
[2017-12-09 20:00] VITALS: BP 143/79
[2017-12-10] VITALS: BP 153/64
[2017-12-10 03:09] LABS: IGG SUBCLASS 1 361 mg/dL (248-810); IGG SUBCLASS 2 515 mg/dL (130-555); IGG SUBCLASS 3 83 mg/dL (15-102); IGG SUBCLASS 4 134 mg/dL (2-96)
[2017-12-10 04:00] VITALS: BP 139/71
[2017-12-10 05:49] LABS: BASOPHILS 0.3 % (0-2); EOSINOPHILS 4.8 % (0-7); HEMATOCRIT 42.7 % (42.0-54.0); HEMOGLOBIN 13.9 g/dL (13.5-17.5); IMMATURE GRANULOCYTES 0.9 % (0-5); LYMPHOCYTES 18.4 % (15-50); MCH 29.6 pg (26.0-34.0); MCHC 32.6 g/dL (31.0-37.0); MEAN PLATELET VOLUME 9.5 fL (7.4-10.4); MONOCYTES 13.3 % (2-11); NEUTROPHILS 62.3 % (40-80); PLATELET COUNT 376 10x3/uL (130-400); RBC 4.69 10x6/uL (4.20-6.10); RDW 14.4 % (11.5-14.5); WBC 6.7 10x3/uL (4.8-10.8)
[2017-12-10 06:39] LABS: ALBUMIN 2.4 g/dL (3.4-5.0); ALKALINE PHOSPHATASE 74 U/L (46-116); ALT (SGPT) 16 U/L (10-68); CALC OSMOLALITY 280 mosm/kg (275-300); CALCIUM 9.7 mg/dL (8.5-10.1); CARBON DIOXIDE 28.3 mmol/L (21.0-32.0); CHLORIDE - SERUM 101 mmol/L (98-107); CREATININE - SERUM 0.7 mg/dL (0.6-1.3); GLUCOSE 121 mg/dL (74-106); LIPASE 1278 U/L (73-393); POTASSIUM - SERUM 4.1 mmol/L (3.5-5.1); PROTEIN - SERUM 6.5 g/dL (6.4-8.2); SODIUM 140 mmol/L (136-145); UREA NITROGEN 14 mg/dL (7-18); eGFR NON AFRICAN AMERICAN > 90 mL/min (90-120)
[2017-12-10 08:15] VITALS: BP 149/83
[2017-12-10 12:00] VITALS: BP 137/75
[2017-12-10 15:02] VITALS: BP 142/83
[2017-12-10 21:22] VITALS: BP 122/63
[2017-12-11 00:47] VITALS: BP 139/79
[2017-12-11 04:47] VITALS: BP 108/64
[2017-12-11 05:58] LABS: BASOPHILS 0.3 % (0-2); EOSINOPHILS 5.8 % (0-7); HEMATOCRIT 42.4 % (42.0-54.0); HEMOGLOBIN 13.8 g/dL (13.5-17.5); IMMATURE GRANULOCYTES 0.5 % (0-5); LYMPHOCYTES 23.1 % (15-50); MCH 29.9 pg (26.0-34.0); MCHC 32.5 g/dL (31.0-37.0); MCV 91.8 fL (80.0-100.0); MEAN PLATELET VOLUME 9.4 fL (7.4-10.4); MONOCYTES 12.9 % (2-11); NEUTROPHILS 57.4 % (40-80); PLATELET COUNT 365 10x3/uL (130-400); RBC 4.62 10x6/uL (4.20-6.10); RDW 14.4 % (11.5-14.5); WBC 6.4 10x3/uL (4.8-10.8)
[2017-12-11 06:29] LABS: ALBUMIN 2.5 g/dL (3.4-5.0); ALKALINE PHOSPHATASE 76 U/L (46-116); ALT (SGPT) 16 U/L (10-68); CALC OSMOLALITY 280 mosm/kg (275-300); CALCIUM 9.5 mg/dL (8.5-10.1); CARBON DIOXIDE 29.9 mmol/L (21.0-32.0); CHLORIDE - SERUM 103 mmol/L (98-107); CREATININE - SERUM 0.7 mg/dL (0.6-1.3); GLUCOSE 108 mg/dL (74-106); LIPASE 1267 U/L (73-393); PROTEIN - SERUM 6.5 g/dL (6.4-8.2); SODIUM 140 mmol/L (136-145); UREA NITROGEN 14 mg/dL (7-18); eGFR NON AFRICAN AMERICAN > 90 mL/min (90-120)
[2017-12-11 06:59] VITALS: BP 138/81
[2017-12-11] MEDS ORDERED: NEURONTIN 300300 MG PO (09:31)
[2017-12-11] MEDS ORDERED: PROTONIX40 MG PO (09:31)
[2017-12-11 11:12] VITALS: BP 134/77
[2017-12-11 15:53] VITALS: BP 107/64
== END 2017-12-11 17:25 | disposition home or self-care (01) | DRG 438 ==
LOC: D.ER 12:21 → D.M3 15:48
PROVIDERS: Emergency Medicine; Family Medicine; Internal Medicine Gastroenterology; Internal Medicine Nephrology
DX: K85.90 Acute pancreatitis without necrosis or infection, unspecified (principal); J96.21 Acute and chronic respiratory failure with hypoxia; F17.213 Nicotine dependence, cigarettes, with withdrawal; J44.1 Chronic obstructive pulmonary disease with (acute) exacerbation; I10 Essential (primary) hypertension; K21.9 Gastro-esophageal reflux disease without esophagitis; R00.0 Tachycardia, unspecified; K59.00 Constipation, unspecified; E78.5 Hyperlipidemia, unspecified; N40.0 Benign prostatic hyperplasia without lower urinary tract symptoms

== ENCOUNTER 2018-02-02 22:32 | Inpatient (IN) | payer MEDICARE ==
[~2018-02-02] VITALS: Ht 185.4 cm; Wt 56.7 kg
--- NOTE | ~2018-02-02 | MORECARE ---
CASE MANAGEMENT DISCHARGE SUMMARY PATIENT: SUZETTE QUIÑONES UNIT: [id number] ADM DATE: 02/02/18 AGE: 72 : 46 SEX: M ROOM/BED: D.2238 AUTHOR: TAWANDA,DOC PHYSICIAN: REFERRING PHYSICIAN: JEFF GONZALEZ MD DATE OF SERVICE: 02/04/18 Discharge Plan Patient Name: SUZETTE QUIÑONES Facility: [facility]:[place] : 1945 Planned Disposition: Home Anticipated Discharge Date: Discharge Date: Expected LOS: Initial Reviewer: [email or web address] Initial Review Date: 02/04/2018 Generated: 02/04/18 3:24 pm Comments DCP- Discharge Planning Updated by [email or web address]: Jacklyn Guallpa on 02/04/18 1:[address] Patient Name: SUZETTE QUIÑONES Admission Status: ER Accout number: [id number] Admission Date: 02-02-2018 : 1945 Admission Diagnosis: Attending: JEFF GONZALEZ Current LOS: 2 Anticipated DC Date: Planned Disposition: Home Primary Insurance: MEDICARE A & B Discharge Planning Comments: CM met with patient to discuss discharge planning, he is alone in the room. States he lives with his sister (Juliette) and his brother in law. States he is independent with all ADL's and IADL's. States he has a walker and wheelchair, but is walking unaided at this time. States he uses his oxygen all the time and gets his supplies from [facility] in [place]. I discussed the availability for rehab, SNF, home health and additional DME. He states his discharge plan is to return home, declines need for home health or additional DME. CM will continue to follow and assist with discharge planning/needs. Octave Board Racker: Jacklyn Guallpa DCPIA - Discharge Planning Initial Assessment Updated by [email or web address]: Jacklyn Guallpa on 02/04/18 2:11 pm * Is the patient Alert and Oriented? Yes * How many steps to enter\exit or inside your home? 3/0 * PCP Tyrese Ritchie [place] * [facility] [place] * Preadmission Environment Home with Family * ADLs Independent * Equipment Nebulizer Other Oxygen Shower Chair Walker Wheelchair * Other Equipment Portable oxygen * List name and contact numbers for known caregivers / representatives who currently or will assist patient after discharge: Juliette Patel - - [phone] * Verbal permission to speak to the caregivers and representatives has been obtained from the patient. Yes * Community resources currently utilized None * Please name any agencies selected above. DME is [facility] in [place] * Additional services required to return to the preadmission environment? No * Can the patient safely return to the preadmission environment? Yes * Has this patient been hospitalized within the prior 30 days at any hospital? No Last DP export: 02/04/18 1:12 p Patient Name: SUZETTE QUIÑONES Page [id number] at 1424 All edits/amendments must be made on the electronic document DICTATION DATE: 02/04/181422 MEDICAL PSYCHOTHERAPIST: WILBERT 02/04/181422 RPT#: [id number] DC DATE: STATUS: ADM IN [facility] [address] [place] [address] END OF REPORT
--- NOTE | ~2018-02-02 | MORECARE ---
CASE MANAGEMENT DISCHARGE SUMMARY PATIENT: SUZETTE QUIÑONES UNIT: [id number] ADM DATE: 02/02/18 AGE: 72 : 46 SEX: M ROOM/BED: D.2238 AUTHOR: RACHELLE NEFF PHYSICIAN: REFERRING PHYSICIAN: JEFF GONZALEZ MD DATE OF SERVICE: 02/04/18 Discharge Plan Patient Name: SUZETTE QUIÑONES Facility: [facility]:[place] : 1945 Planned Disposition: Home Anticipated Discharge Date: Discharge Date: Expected LOS: Initial Reviewer: [email or web address] Initial Review Date: 02/04/2018 Generated: 02/04/18 5:50 pm Comments DCP- Discharge Planning Updated by [email or web address]: Brenda Martinez on 02/04/18 3:[address] Patient Name: SUZETTE QUIÑONES Encounter No: [id number] : 1945 Primary Insurance: MEDICARE A & B Anticipated DC Date: Planned Disposition: Home External Planned Provider: : DCP follow-up note: Patient and family in agreement with discharge plan. No changes to plan. Case management will follow and assist as needed. Brenda Martinez DCP- Discharge Planning Updated by [email or web address]: Jacklyn Guallpa on 02/04/18 1:[address] Patient Name: SUZETTE QUIÑONES Admission Status: ER Accout number: [id number] Admission Date: 02-02-2018 : 1945 Admission Diagnosis: Attending: JEFF GONZALEZ Current LOS: 2 Anticipated DC Date: Planned Disposition: Home Primary Insurance: MEDICARE A & B Discharge Planning Comments: CM met with patient to discuss discharge planning, he is alone in the room. States he lives with his sister (Juliette) and his brother in law. States he is independent with all ADL's and IADL's. States he has a walker and wheelchair, but is walking unaided at this time. States he uses his oxygen all the time and gets his supplies from [facility] in [place]. I discussed the availability for rehab, SNF, home health and additional DME. He states his discharge plan is to return home, declines need for home health or additional DME. CM will continue to follow and assist with discharge planning/needs. Rig Mechanic: Jacklyn Ramu DCPIA - Discharge Planning Initial Assessment Updated by [email or web address]: Jacklyn Ramu on 02/04/18 2:11 pm * Is the patient Alert and Oriented? Yes * How many steps to enter\exit or inside your home? 3/0 * PCP Tyrese [place] - [place] * Pharmacy [facility] in [place] * Preadmission Environment Home with Family * ADLs Independent * Equipment Nebulizer Other Oxygen Shower Chair Walker Wheelchair * Other Equipment Portable oxygen * List name and contact numbers for known caregivers / representatives who currently or will assist patient after discharge: Juliette Patel [facility] [phone] * Verbal permission to speak to the caregivers and representatives has been obtained from the patient. Yes * Community resources currently utilized None * Please name any agencies selected above. DME is [facility] in [place] * Additional services required to return to the preadmission environment? No * Can the patient safely return to the preadmission environment? Yes * Has this patient been hospitalized within the prior 30 days at any hospital? No Last DP export: 02/04/18 1:24 p Patient Name: SUZETTE QUIÑONES Page 26192 at 1650 All edits/amendments must be made on the electronic document DICTATION DATE: 02/04/181648 COILED TUBING SUPERVISOR: WILBERT 02/04/181648 RPT#: [id number] DC DATE: STATUS: ADM IN [facility] [address] [place] [address] END OF REPORT
--- NOTE | ~2018-02-02 | MORECARE ---
CASE MANAGEMENT DISCHARGE SUMMARY PATIENT: SUZETTE QUIÑONES UNIT: [id number] ADM DATE: 02/02/18 AGE: 72 : 46 SEX: M ROOM/BED: D.2238 AUTHOR: RACHELLE NEFF PHYSICIAN: REFERRING PHYSICIAN: JEFF GONZALEZ MD DATE OF SERVICE: 02/04/18 Discharge Plan Patient Name: SUZETTE QUIÑONES [facility] [facility] 1945 Planned Disposition: Home Anticipated Discharge Date: Discharge Date: Expected LOS: Initial Reviewer: [email or web address] Initial Review Date: 02/04/2018 Generated: 02/04/18 3:12 pm DCPIA - Discharge Planning Initial Assessment Updated by [email or web address]: Jacklyn Guallpa on 02/04/18 2:11 pm * Is the patient Alert and Oriented? Yes * How many steps to enter\exit or inside your home? 3/0 * PCP Tyrese Wahl [facility] * Pharmacy [facility] in [place] * Preadmission Environment Home with Family * ADLs Independent * Equipment Nebulizer Other Oxygen Shower Chair Walker Wheelchair * Other Equipment Portable oxygen * List name and contact numbers for known caregivers / representatives who currently or will assist patient after discharge: Juliette Patel [facility] [phone] * Verbal permission to speak to the caregivers and representatives has been obtained from the patient. Yes * Community resources currently utilized None * Please name any agencies selected above. DME is [facility] in [place] * Additional services required to return to the preadmission environment? No * Can the patient safely return to the preadmission environment? Yes * Has this patient been hospitalized within the prior 30 days at any hospital? No Patient Name: SUZETTE QUIÑONES Page 65712 at 1412 All edits/amendments must be made on the electronic document DICTATION DATE: 02/04/181411 BOILER ASSISTANT OPERATOR: WILBERT 02/04/181411 RPT#: [id number] DC DATE: STATUS: ADM IN [facility] [address] [place] [address] END OF REPORT
[~2018-02-02 22:32] MED LIST changes: +NEURONTIN 300300 MG PO; +PROTONIX40 MG PO
[2018-02-02] MEDS ORDERED: NORCO 5/325 TAB1 TAB (22:40)
[2018-02-02] MEDS ORDERED: ZOFRAN4 MG PO (22:41)
[2018-02-02] MEDS ORDERED: METOPROLOL TART50 MG PO (22:42)
[2018-02-02 23:36] LABS: BASOPHILS 0.2 % (0-2); EOSINOPHILS 2.1 % (0-7); HEMATOCRIT 51.1 % (42.0-54.0); HEMOGLOBIN 17.1 g/dL (13.5-17.5); IMMATURE GRANULOCYTES 0.1 % (0-5); LYMPHOCYTES 14.4 % (15-50); MCH 30.2 pg (26.0-34.0); MCHC 33.5 g/dL (31.0-37.0); MCV 90.1 fL (80.0-100.0); MONOCYTES 8.7 % (2-11); NEUTROPHILS 74.5 % (40-80); PLATELET COUNT 322 10x3/uL (130-400); RBC 5.67 10x6/uL (4.20-6.10); RDW 14.2 % (11.5-14.5); WBC 8.9 10x3/uL (4.8-10.8)
[2018-02-02 23:48] LABS: ALBUMIN 2.7 g/dL (3.4-5.0); ALKALINE PHOSPHATASE 112 U/L (46-116); ALT (SGPT) 13 U/L (10-68); BILIRUBIN - TOTAL 0.28 mg/dL (0.2-1.3); CALC OSMOLALITY 277 mosm/kg (275-300); CALCIUM 9.4 mg/dL (8.5-10.1); CARBON DIOXIDE 29.1 mmol/L (21.0-32.0); CHLORIDE - SERUM 102 mmol/L (98-107); CREATININE - SERUM 0.8 mg/dL (0.6-1.3); GLUCOSE 103 mg/dL (74-106); POTASSIUM - SERUM 3.6 mmol/L (3.5-5.1); SODIUM 139 mmol/L (136-145); UREA NITROGEN 12 mg/dL (7-18); eGFR NON AFRICAN AMERICAN > 90 mL/min (90-120)
[2018-02-03] VITALS (7 sets, daily range): BP systolic 132–196; BP diastolic 66–118; Ht 185.4 cm; Wt 56.7 kg
[2018-02-03 05:20] LABS: BASOPHILS 0.2 % (0-2); EOSINOPHILS 2.4 % (0-7); HEMATOCRIT 50.9 % (42.0-54.0); IMMATURE GRANULOCYTES 0.2 % (0-5); LYMPHOCYTES 18.2 % (15-50); MCH 30.2 pg (26.0-34.0); MCHC 33.4 g/dL (31.0-37.0); MCV 90.6 fL (80.0-100.0); MEAN PLATELET VOLUME 9.6 fL (7.4-10.4); PLATELET COUNT 357 10x3/uL (130-400); RBC 5.62 10x6/uL (4.20-6.10); RDW 14.2 % (11.5-14.5); WBC 9.4 10x3/uL (4.8-10.8)
[2018-02-03 06:39] LABS: ALBUMIN 2.8 g/dL (3.4-5.0); ALKALINE PHOSPHATASE 117 U/L (46-116); ALT (SGPT) 12 U/L (10-68); BILIRUBIN - TOTAL 0.31 mg/dL (0.2-1.3); CALC OSMOLALITY 278 mosm/kg (275-300); CALCIUM 9.8 mg/dL (8.5-10.1); CARBON DIOXIDE 27.2 mmol/L (21.0-32.0); CHLORIDE - SERUM 102 mmol/L (98-107); CREATININE - SERUM 0.8 mg/dL (0.6-1.3); GLUCOSE 85 mg/dL (74-106); MAGNESIUM - SERUM 2.1 mg/dL (1.8-2.4); PHOSPHOROUS 4.2 mg/dL (2.5-4.9); POTASSIUM - SERUM 4.1 mmol/L (3.5-5.1); PROTEIN - SERUM 7.2 g/dL (6.4-8.2); SODIUM 141 mmol/L (136-145); UREA NITROGEN 11 mg/dL (7-18); eGFR NON AFRICAN AMERICAN > 90 mL/min (90-120)
[2018-02-04 00:52] VITALS: BP 148/78
[2018-02-04 05:57] VITALS: BP 143/88
[2018-02-04 06:21] LABS: BASOPHILS 0.4 % (0-2); EOSINOPHILS 3.6 % (0-7); HEMATOCRIT 50.2 % (42.0-54.0); HEMOGLOBIN 16.2 g/dL (13.5-17.5); IMMATURE GRANULOCYTES 0.3 % (0-5); LYMPHOCYTES 20.4 % (15-50); MCH 29.9 pg (26.0-34.0); MCHC 32.3 g/dL (31.0-37.0); MEAN PLATELET VOLUME 9.5 fL (7.4-10.4); NEUTROPHILS 64.3 % (40-80); PLATELET COUNT 350 10x3/uL (130-400); RBC 5.42 10x6/uL (4.20-6.10); RDW 14.5 % (11.5-14.5); WBC 7.7 10x3/uL (4.8-10.8)
[2018-02-04 06:33] LABS: MCV 92.6 fL (80.0-100.0)
[2018-02-04 07:04] LABS: ALBUMIN 2.4 g/dL (3.4-5.0); ALKALINE PHOSPHATASE 107 U/L (46-116); BILIRUBIN - TOTAL 0.31 mg/dL (0.2-1.3); CALC OSMOLALITY 284 mosm/kg (275-300); CALCIUM 9.5 mg/dL (8.5-10.1); CARBON DIOXIDE 26.9 mmol/L (21.0-32.0); CHLORIDE - SERUM 108 mmol/L (98-107); CREATININE - SERUM 0.8 mg/dL (0.6-1.3); GLUCOSE 77 mg/dL (74-106); LIPASE 913 U/L (73-393); PROTEIN - SERUM 6.4 g/dL (6.4-8.2); SODIUM 144 mmol/L (136-145); UREA NITROGEN 9 mg/dL (7-18); eGFR NON AFRICAN AMERICAN > 90 mL/min (90-120)
[2018-02-04 07:05] LABS: ALT (SGPT) 6 U/L (10-68); POTASSIUM - SERUM 5.5 mmol/L (3.5-5.1)
[2018-02-04 08:20] VITALS: BP 158/88
[2018-02-04 12:25] VITALS: BP 162/97
== END 2018-02-04 16:51 | disposition home or self-care (01) | DRG 438 ==
LOC: D.ER 22:32 → D.MS 23:20 → D.SDCHOLD 02-03 14:04 → D.MS 02-03 14:05
PROVIDERS: Family Medicine; Internal Medicine Nephrology
DX: K85.90 Acute pancreatitis without necrosis or infection, unspecified (principal); E43 Unspecified severe protein-calorie malnutrition; Z68.1 Body mass index [BMI] 19.9 or less, adult; J91.0 Malignant pleural effusion; I10 Essential (primary) hypertension; J44.9 Chronic obstructive pulmonary disease, unspecified; K21.9 Gastro-esophageal reflux disease without esophagitis; Z72.0 Tobacco use

== ENCOUNTER 2018-04-02 12:38 | Inpatient (IN) | payer MEDICARE ==
[2018-04-02] VITALS (7 sets, daily range): BP systolic 109–153; BP diastolic 78–89
[~2018-04-02] VITALS: Ht 185.4 cm; Wt 49.9 kg
[~2018-04-02 12:38] MED LIST changes: +NORCO 5/325 TAB1 TAB; +ZOFRAN4 MG PO
[2018-04-02 13:35] LABS: BASOPHILS 0.6 % (0-2); EOSINOPHILS 1.9 % (0-7); HEMATOCRIT 50.5 % (42.0-54.0); HEMOGLOBIN 16.9 g/dL (13.5-17.5); IMMATURE GRANULOCYTES 0.5 % (0-5); LYMPHOCYTES 15.9 % (15-50); MCH 29.8 pg (26.0-34.0); MCHC 33.5 g/dL (31.0-37.0); MCV 88.9 fL (80.0-100.0); MEAN PLATELET VOLUME 9.4 fL (7.4-10.4); NEUTROPHILS 72.1 % (40-80); PLATELET COUNT 322 10x3/uL (130-400); RBC 5.68 10x6/uL (4.20-6.10); WBC 8.4 10x3/uL (4.8-10.8)
[2018-04-02 13:53] LABS: ALBUMIN 2.6 g/dL (3.4-5.0); ALKALINE PHOSPHATASE 88 U/L (46-116); ALT (SGPT) 23 U/L (10-68); APTT 31.5 SECONDS (22.8-39.4); BILIRUBIN - TOTAL 0.29 mg/dL (0.2-1.3); CALC OSMOLALITY 276 mosm/kg (275-300); CALCIUM 9.5 mg/dL (8.5-10.1); CARBON DIOXIDE 29.8 mmol/L (21.0-32.0); CHLORIDE - SERUM 100 mmol/L (98-107); CREATININE - SERUM 0.8 mg/dL (0.6-1.3); GLUCOSE 114 mg/dL (74-106); INR 1.03 (0.85-1.17); POTASSIUM - SERUM 4.3 mmol/L (3.5-5.1); PROTEIN - SERUM 6.2 g/dL (6.4-8.2); SODIUM 138 mmol/L (136-145); UREA NITROGEN 12 mg/dL (7-18); eGFR NON AFRICAN AMERICAN > 90 mL/min (90-120)
[2018-04-02 14:04] LABS: CKMB 0.8 U/L (0.0-3.6); CREATINE KINASE 17 UL (21-232); PRO BNP 1997 pg/mL (0-125)
[2018-04-02 14:05] LABS: TROPONIN-I < 0.017 ng/mL (0.000-0.060)
[2018-04-02] MEDS ORDERED: FLOMAX0.4 MG PO (19:57)
[2018-04-02] MEDS ORDERED: REQUIP0.25 MG PO (19:58)
[2018-04-02] MEDS ORDERED: PERCOCET 5-3251 TAB PO (20:09)
[2018-04-03 01:37] VITALS: BP 130/80
[2018-04-03 04:44] LABS: BASOPHILS 0.4 % (0-2); EOSINOPHILS 2.3 % (0-7); HEMOGLOBIN 16.7 g/dL (13.5-17.5); IMMATURE GRANULOCYTES 0.7 % (0-5); LYMPHOCYTES 19.9 % (15-50); MCH 29.6 pg (26.0-34.0); MCHC 33.4 g/dL (31.0-37.0); MCV 88.7 fL (80.0-100.0); MEAN PLATELET VOLUME 9.3 fL (7.4-10.4); MONOCYTES 11.6 % (2-11); NEUTROPHILS 65.1 % (40-80); PLATELET COUNT 345 10x3/uL (130-400); RBC 5.64 10x6/uL (4.20-6.10); RDW 14.2 % (11.5-14.5); WBC 8.3 10x3/uL (4.8-10.8)
[2018-04-03 04:54] LABS: CALC OSMOLALITY 281 mosm/kg (275-300); CALCIUM 9.6 mg/dL (8.5-10.1); CARBON DIOXIDE 32.2 mmol/L (21.0-32.0); CHLORIDE - SERUM 101 mmol/L (98-107); GLUCOSE 90 mg/dL (74-106); POTASSIUM - SERUM 3.8 mmol/L (3.5-5.1); SODIUM 141 mmol/L (136-145); UREA NITROGEN 15 mg/dL (7-18); eGFR NON AFRICAN AMERICAN 78 mL/min (90-120)
[2018-04-03 08:06] VITALS: BP 126/78; BMI 19.8
[2018-04-03 08:50] VITALS: BP 142/89
[2018-04-03 12:27] VITALS: BP 161/98
[2018-04-03 12:31] VITALS: BMI 14.5
[2018-04-03 16:19] VITALS: BP 152/80
[2018-04-03 21:48] VITALS: BP 167/64
[2018-04-04 00:55] VITALS: BP 174/95
[2018-04-04 04:32] LABS: BASOPHILS 0.2 % (0-2); EOSINOPHILS 0.5 % (0-7); HEMATOCRIT 51.2 % (42.0-54.0); HEMOGLOBIN 16.8 g/dL (13.5-17.5); IMMATURE GRANULOCYTES 0.6 % (0-5); LYMPHOCYTES 8.1 % (15-50); MCH 29.3 pg (26.0-34.0); MCHC 32.8 g/dL (31.0-37.0); MCV 89.4 fL (80.0-100.0); MEAN PLATELET VOLUME 9.4 fL (7.4-10.4); MONOCYTES 2.1 % (2-11); NEUTROPHILS 88.5 % (40-80); PLATELET COUNT 326 10x3/uL (130-400); RBC 5.73 10x6/uL (4.20-6.10); RDW 14.4 % (11.5-14.5); WBC 9.5 10x3/uL (4.8-10.8)
[2018-04-04 04:51] LABS: CALCIUM 9.5 mg/dL (8.5-10.1); CARBON DIOXIDE 28.2 mmol/L (21.0-32.0); CHLORIDE - SERUM 102 mmol/L (98-107); POTASSIUM - SERUM 4.2 mmol/L (3.5-5.1); SODIUM 141 mmol/L (136-145)
[2018-04-04 04:54] LABS: CALC OSMOLALITY 281 mosm/kg (275-300); CREATININE - SERUM 0.7 mg/dL (0.6-1.3); GLUCOSE 138 mg/dL (74-106); PRE-ALBUMIN 22.7 mg/dL (18.0-35.7); UREA NITROGEN 10 mg/dL (7-18); eGFR NON AFRICAN AMERICAN > 90 mL/min (90-120)
[2018-04-04 05:35] VITALS: BP 147/89
[2018-04-04 08:25] VITALS: BP 155/94
[2018-04-04 11:30] VITALS: Ht 185.4 cm; Wt 49.9 kg
[2018-04-04 12:05] VITALS: BP 143/82
[2018-04-04 16:00] VITALS: BP 136/90
[2018-04-04 20:00] VITALS: BP 141/73
[2018-04-05] VITALS: BP 138/69
[2018-04-05 03:00] VITALS: BP 152/85
[2018-04-05 05:50] LABS: BASOPHILS 0.1 % (0-2); EOSINOPHILS 0 % (0-7); HEMOGLOBIN 15.8 g/dL (13.5-17.5); IMMATURE GRANULOCYTES 0.7 % (0-5); LYMPHOCYTES 7.1 % (15-50); MCH 29.4 pg (26.0-34.0); MCHC 32.9 g/dL (31.0-37.0); MCV 89.4 fL (80.0-100.0); MEAN PLATELET VOLUME 9.5 fL (7.4-10.4); MONOCYTES 1.8 % (2-11); NEUTROPHILS 90.3 % (40-80); PLATELET COUNT 321 10x3/uL (130-400); RBC 5.37 10x6/uL (4.20-6.10); RDW 14.3 % (11.5-14.5); WBC 8.8 10x3/uL (4.8-10.8)
[2018-04-05 06:20] LABS: CALCIUM 9.4 mg/dL (8.5-10.1); CARBON DIOXIDE 27.9 mmol/L (21.0-32.0); CHLORIDE - SERUM 101 mmol/L (98-107); PRO BNP 455 pg/mL (0-125); SODIUM 137 mmol/L (136-145)
[2018-04-05 06:22] LABS: CALC OSMOLALITY 282 mosm/kg (275-300); GLUCOSE 214 mg/dL (74-106); POTASSIUM - SERUM 5.2 mmol/L (3.5-5.1); UREA NITROGEN 21 mg/dL (7-18); eGFR NON AFRICAN AMERICAN 78 mL/min (90-120)
[2018-04-05 11:03] VITALS: BP 144/87
[2018-04-05 15:32] VITALS: BP 136/76
[2018-04-05 18:31] VITALS: BP 150/84
[2018-04-05 20:00] VITALS: BP 171/88
[2018-04-06] VITALS: BP 165/71
[2018-04-06 03:00] VITALS: BP 151/68
[2018-04-06 07:37] LABS: BASOPHILS 0.2 % (0-2); EOSINOPHILS 0.9 % (0-7); HEMATOCRIT 45.5 % (42.0-54.0); HEMOGLOBIN 14.9 g/dL (13.5-17.5); IMMATURE GRANULOCYTES 0.6 % (0-5); LYMPHOCYTES 17.2 % (15-50); MCH 29.3 pg (26.0-34.0); MCHC 32.7 g/dL (31.0-37.0); MCV 89.4 fL (80.0-100.0); MEAN PLATELET VOLUME 9.1 fL (7.4-10.4); MONOCYTES 9.9 % (2-11); NEUTROPHILS 71.2 % (40-80); PLATELET COUNT 267 10x3/uL (130-400); RBC 5.09 10x6/uL (4.20-6.10); RDW 14.5 % (11.5-14.5); WBC 8.5 10x3/uL (4.8-10.8)
[2018-04-06 07:48] LABS: CALC OSMOLALITY 278 mosm/kg (275-300); CALCIUM 9.1 mg/dL (8.5-10.1); CARBON DIOXIDE 25.2 mmol/L (21.0-32.0); CHLORIDE - SERUM 103 mmol/L (98-107); CREATININE - SERUM 0.8 mg/dL (0.6-1.3); GLUCOSE 113 mg/dL (74-106); SODIUM 137 mmol/L (136-145); UREA NITROGEN 23 mg/dL (7-18); eGFR NON AFRICAN AMERICAN > 90 mL/min (90-120)
[2018-04-06 09:10] VITALS: BP 157/86
--- NOTE | 2018-04-06 10:40 | MORECARE ---
CASE MANAGEMENT DISCHARGE SUMMARY PATIENT: SUZETTE QUIÑONES UNIT: [id number] ADM DATE: 04/02/18 AGE: 72 : 46 SEX: M ROOM/BED: D.2214 AUTHOR: RACHELLE NEFF PHYSICIAN: REFERRING PHYSICIAN: DEVI LOVE MD DATE OF SERVICE: 04/06/18 Discharge Plan Patient Name: SUZETTE QUIÑONES [facility] [facility] 1945 Planned Disposition: Inpatient Rehab Anticipated Discharge Date: 04/09/18 Discharge Date: Expected LOS: 7 Initial Reviewer: [email or web address] Initial Review Date: 04/02/2018 Generated: 04/06/18 11:40 am DCPIA - Discharge Planning Initial Assessment Updated by [email or web address]: Milana Dexter on 04/06/18 10:38 am * How many steps to enter\exit or inside your home? * PCP DR. RAM IN [facility] * Pharmacy [facility] IN [place] * Preadmission Environment Home with Family * ADLs Independent * Equipment Oxygen * Other Equipment PORTABLE O2, AND URINAL * List name and contact numbers for known caregivers / representatives who currently or will assist patient after discharge: ARCHIE GRAYSON (SISTER) [phone] * Verbal permission to speak to the caregivers and representatives has been obtained from the patient. Yes * Community resources currently utilized None * Additional services required to return to the preadmission environment? Yes * Can the patient safely return to the preadmission environment? Yes * Has this patient been hospitalized within the prior 30 days at any hospital? Yes Patient Name: SUZETTE QUIÑONES Page 77251 at 1040 All edits/amendments must be made on the electronic document DICTATION DATE: 04/06/18 1039 TANK HOUSE SUPERVISOR: WILBERT 04/06/18 1039 RPT#: [id number] DC DATE: STATUS: ADM IN [facility] [address] [place] [address] END OF REPORT
--- NOTE | 2018-04-06 10:53 | MORECARE ---
CASE MANAGEMENT DISCHARGE SUMMARY PATIENT: SUZETTE QUIÑONES UNIT: [id number] ADM DATE: 04/02/18 AGE: 72 : 46 SEX: M ROOM/BED: D.2214 AUTHOR: TAWANDADOC PHYSICIAN: REFERRING PHYSICIAN: DEVI LOVE MD DATE OF SERVICE: 04/06/18 Discharge Plan Patient Name: SUZETTE QUIÑONES Facility: [facility]:[place] : 1945 Planned Disposition: Inpatient Rehab Anticipated Discharge Date: 04/09/18 Discharge Date: Expected LOS: 7 Initial Reviewer: [email or web address] Initial Review Date: 04/02/2018 Generated: 04/06/18 11:53 am Comments DCP- Discharge Planning Updated by [email or web address]: Milana Dexter on 04/06/18 9:[address] Patient Name: SUZETTE QUIÑONES Admission Status: ER Accout number: [id number] Admission Date: 04-02-2018 : 1945 Admission Diagnosis:ORTHOPNEA Attending: DEVI LOVE Current LOS: 4 Anticipated DC Date: 04-09-2018 Planned Disposition: Inpatient Rehab Primary Insurance: MEDICARE A & B Discharge Planning Comments: CM MET WITH PATIENT AND CALLED SISTER (ARCHIE) REGARDING D/C NEEDS AND PLANS. PATIENT STATED HE LIVES WITH HIS SISTER AND SHE WILL DRIVE HIM HOME WHEN DISCHARGED. PATIENT STATED HE IS INDEPENDENT WITH HIS CARE AND HAS OXYGEN AND A PORTABLE O2 AT HOME. PATIENT STATED HIS PCP IS DR. RAM IN [place] AND USES [facility] IN [place]. PATIENT STATED HE DOES NOT WANT HOME HEALTH OR ANYTHING. CM SPOKE WITH HIS SISTER (PATIENT STATED OK TO TALK WITH HER) REGARDING HH, REHAB, ETC. PATIENTS SISTER WANTS TO WAIT AND SEE WHAT OUTCOME IS AND STATED IF REHAB IS NEEDED SHE WOULD RATHER HIM BE IN INPATIENT REHAB AT THIS HOSPITAL. PATIENT WILL REFUSE TO HAVE REHAB AT A SNF SHE STATED. CM WILL CONTINUE TO FOLLOW PATIENT WITH DISCHARGE NEEDS AND PLANS. PCP DR. RAM IN [facility] [place] ARCHIE GRAYSON (SISTER) [phone] Exterminator Helper Termite: Milana Dexter DCPIA - Discharge Planning Initial Assessment Updated by [email or web address]: Milana Dexter on 04/06/18 10:38 am * How many steps to enter\exit or inside your home? * PCP DR. RAM IN [facility] * Pharmacy [facility] IN [place] * Preadmission Environment Home with Family * ADLs Independent * Equipment Oxygen * Other Equipment PORTABLE O2, AND URINAL * List name and contact numbers for known caregivers / representatives who currently or will assist patient after discharge: ARCHIE GRAYSON (SISTER) [phone] * Verbal permission to speak to the caregivers and representatives has been obtained from the patient. Yes * Community resources currently utilized None * Additional services required to return to the preadmission environment? Yes * Can the patient safely return to the preadmission environment? Yes * Has this patient been hospitalized within the prior 30 days at any hospital? Yes Last DP export: 04/06/18 9:40 am Patient Name: SUZETTE QUIÑONES Page [id number] at 1053 All edits/amendments must be made on the electronic document DICTATION DATE: 04/06/18 105 COMMUNITY BOARD MEMBER: WILBERT 04/06/18 1053 RPT#: [id number] DC DATE: STATUS: ADM IN [facility] [address] [place] [address] END OF REPORT
[2018-04-06 13:02] VITALS: BP 157/80
[2018-04-06 17:32] VITALS: BP 166/90
[2018-04-06 20:00] VITALS: BP 158/71
[2018-04-07] VITALS: BP 151/64
[2018-04-07 03:00] VITALS: BP 148/59
[2018-04-07 05:12] LABS: BASOPHILS 0.1 % (0-2); EOSINOPHILS 0.9 % (0-7); HEMATOCRIT 46.5 % (42.0-54.0); HEMOGLOBIN 15.3 g/dL (13.5-17.5); IMMATURE GRANULOCYTES 0.6 % (0-5); LYMPHOCYTES 13.2 % (15-50); MCH 29.5 pg (26.0-34.0); MCHC 32.9 g/dL (31.0-37.0); MCV 89.8 fL (80.0-100.0); MEAN PLATELET VOLUME 9.1 fL (7.4-10.4); MONOCYTES 10.7 % (2-11); NEUTROPHILS 74.5 % (40-80); PLATELET COUNT 274 10x3/uL (130-400); RBC 5.18 10x6/uL (4.20-6.10); RDW 14.5 % (11.5-14.5); WBC 8.9 10x3/uL (4.8-10.8)
[2018-04-07 05:50] LABS: CALC OSMOLALITY 278 mosm/kg (275-300); CALCIUM 9.3 mg/dL (8.5-10.1); CARBON DIOXIDE 28.3 mmol/L (21.0-32.0); CHLORIDE - SERUM 101 mmol/L (98-107); CREATININE - SERUM 0.8 mg/dL (0.6-1.3); GLUCOSE 126 mg/dL (74-106); POTASSIUM - SERUM 4.3 mmol/L (3.5-5.1); SODIUM 137 mmol/L (136-145); UREA NITROGEN 21 mg/dL (7-18); eGFR NON AFRICAN AMERICAN > 90 mL/min (90-120)
[2018-04-07 08:52] VITALS: BP 192/107
[2018-04-07 13:40] VITALS: BP 151/78
--- NOTE | 2018-04-07 15:25 | MORECARE ---
CASE MANAGEMENT DISCHARGE SUMMARY PATIENT: SUZETTE QUIÑONES UNIT: [id number] ADM DATE: 04/02/18 AGE: 72 : 46 SEX: M ROOM/BED: D.2218 AUTHOR: TAWANDADOC PHYSICIAN: REFERRING PHYSICIAN: DEVI LOVE MD DATE OF SERVICE: 04/07/18 Discharge Plan Patient Name: SUZETTE QUIÑONES Facility: [facility]:[place] : 1945 Planned Disposition: Inpatient Rehab Anticipated Discharge Date: 04/09/18 Discharge Date: Expected LOS: 7 Initial Reviewer: [email or web address] Initial Review Date: 04/02/2018 Generated: 04/07/18 4:25 pm Comments DCP- Discharge Planning Updated by [email or web address]: Brenda Martinez on 04/07/18 2:[address] PATIENT WILL BE DISCHARGING TO INPATIENT REHAB TODAY, IMM SERVED AND EXPLAINED. CM TO FOLLOW AND ASSIST NEEDED. DR GONZALEZ WILL ADJUST HIS PAIN MEDICINE, PATIENT WAS CONCERNED. DCP- Discharge Planning Updated by [email or web address]: Milana Dexter on 04/06/18 9:[address] Patient Name: SUZETTE QUIÑONES Admission Status: ER Accout number: [id number] Admission Date: 04-02-2018 : 1945 Admission Diagnosis:ORTHOPNEA Attending: DEVI LOVE Current LOS: 4 Anticipated DC Date: 04-09-2018 Planned Disposition: Inpatient Rehab Primary Insurance: MEDICARE A & B Discharge Planning Comments: CM MET WITH PATIENT AND CALLED SISTER (ARCHIE) REGARDING D/C NEEDS AND PLANS. PATIENT STATED HE LIVES WITH HIS SISTER AND SHE WILL DRIVE HIM HOME WHEN DISCHARGED. PATIENT STATED HE IS INDEPENDENT WITH HIS CARE AND HAS OXYGEN AND A PORTABLE O2 AT HOME. PATIENT STATED HIS PCP IS DR. RAM IN [place] AND USES [facility] IN [place]. PATIENT STATED HE DOES NOT WANT HOME HEALTH OR ANYTHING. CM SPOKE WITH HIS SISTER (PATIENT STATED OK TO TALK WITH HER) REGARDING HH, REHAB, ETC. PATIENTS SISTER WANTS TO WAIT AND SEE WHAT OUTCOME IS AND STATED IF REHAB IS NEEDED SHE WOULD RATHER HIM BE IN INPATIENT REHAB AT THIS HOSPITAL. PATIENT WILL REFUSE TO HAVE REHAB AT A GROUP HOME SHE STATED. CM WILL CONTINUE TO FOLLOW PATIENT WITH DISCHARGE NEEDS AND PLANS. [facility] ARCHIE GRAYSON (SISTER) [phone] Die Developer: Milana Dexter DCPIA - Discharge Planning Initial Assessment Updated by [email or web address]: Milana Dexter on 04/06/18 10:38 am * How many steps to enter\exit or inside your home? * P[facility] RAM IN [facility] * Pharmacy [facility] * Preadmission Environment Home with Family * ADLs Independent * Equipment Oxygen * Other Equipment PORTABLE O2, AND URINAL * List name and contact numbers for known caregivers / representatives who currently or will assist patient after discharge: ARCHIE GRAYSON (SISTER) [phone] * Verbal permission to speak to the caregivers and representatives has been obtained from the patient. Yes * Community resources currently utilized None * Additional services required to return to the preadmission environment? Yes * Can the patient safely return to the preadmission environment? Yes * Has this patient been hospitalized within the prior 30 days at any hospital? Yes Coverage Notice Reviewer: [id number] Chau Martinez Notice Issued Date-Time: 04/07/2018 15:15 Notice Type: IM Discharge Notice Notice Delivered To: Patient Relationship to Patient: Salesforce Administrator Name: Delivery Method: HAND - Hand Delivered Cathie Days: Prior Verbal Notification: Recipient Understood Notice: Yes Recipient Signature: Yes Med Rec Note Co-signed by Attending: Coverage Notice Comment: Last DP export: 04/06/18 9:53 am Patient Name: SUZETTE QUIÑONES Page [id number] at 1525 All edits/amendments must be made on the electronic document DICTATION DATE: 04/07/18 1524 BANKING MANAGEMENT CONSULTING MANAGER: WILBERT 04/07/18 1524 RPT#: [id number] DC DATE: STATUS: ADM IN [facility] [address] [place] [address] END OF REPORT
[2018-04-07 16:00] VITALS: BP 164/87
[2018-04-07] MEDS ORDERED: Nicoderm [PBKC] TRANSDERM (17:09)
[2018-04-07] MEDS ORDERED: MAXIPIME 2 GM/D52 G1 IV (17:09)
[2018-04-07] MEDS ORDERED: ATROVENT 0.02%2.5 ML UPD (17:09)
[2018-04-07] MEDS ORDERED: BROVANA15 MCG/2 M INH (17:09)
[2018-04-07] MEDS ORDERED: VANCOMYCIN 1 GM/1 G1 IV (17:09)
[2018-04-07] MEDS ORDERED: ALBUTEROL1.25 MG/3 INH ×2 (17:09)
[2018-04-07] MEDS ORDERED: ELIQUIS5 MG PO (17:09)
[2018-04-07] MEDS ORDERED: PULMICORT0.5 MG/21 UPD (17:10)
[2018-04-07] MEDS ORDERED: NORCO-10 PO (17:10)
[2018-04-07] MEDS ORDERED: TESSALON PERLE100 MG PO (17:10)
[2018-04-07] MEDS ORDERED: PREDNISONE20 MG PO (17:11)
[2018-04-07] MEDS ORDERED: MUCINEX DM ER1 EAC1 PO (17:11)
[2018-04-07] MEDS ORDERED: DURAGESIC1 PATCH .7 TRANSDERM (17:25)
--- NOTE | 2018-04-14 11:56 | MORECARE ---
CASE MANAGEMENT DISCHARGE SUMMARY PATIENT: SUZETTE QUIÑONES UNIT: [id number] ADM DATE: 04/02/18 AGE: 72 : 46 SEX: M ROOM/BED: D.2218 AUTHOR: TAWANDADOC PHYSICIAN: REFERRING PHYSICIAN: DEVI LOVE MD DATE OF SERVICE: 04/14/18 Discharge Plan Patient Name: SUZETTE QUIÑONES Facility: [facility]:[place] : 1945 Planned Disposition: Inpatient Rehab Anticipated Discharge Date: 04/09/18 Discharge Date: 04/07/2018 Expected LOS: 7 Initial Reviewer: [email or web address] Initial Review Date: 04/02/2018 Generated: 04/14/18 12:56 pm Comments DCP- Discharge Planning Updated by [email or web address]: Brenda Martinez on 04/07/18 2:[address] PATIENT WILL BE DISCHARGING TO INPATIENT REHAB TODAY, IMM SERVED AND EXPLAINED. CM TO FOLLOW AND ASSIST NEEDED. DR GONZALEZ WILL ADJUST HIS PAIN MEDICINE, PATIENT WAS CONCERNED. DCP- Discharge Planning Updated by [email or web address]: Milana Dexter on 04/06/18 9:[address] Patient Name: SUZETTE QUIÑONES Admission Status: ER Accout number: [id number] Admission Date: 04-02-2018 : 1945 Admission Diagnosis:ORTHOPNEA Attending: DEVI LOVE Current LOS: 4 Anticipated DC Date: 04-09-2018 Planned Disposition: Inpatient Rehab Primary Insurance: MEDICARE A & B Discharge Planning Comments: CM MET WITH PATIENT AND CALLED SISTER (ARCHIE) REGARDING D/C NEEDS AND PLANS. PATIENT STATED HE LIVES WITH HIS SISTER AND SHE WILL DRIVE HIM HOME WHEN DISCHARGED. PATIENT STATED HE IS INDEPENDENT WITH HIS CARE AND HAS OXYGEN AND A PORTABLE O2 AT HOME. PATIENT STATED HIS PCP IS DR. RAM IN [place] AND USES [facility] IN [place]. PATIENT STATED HE DOES NOT WANT HOME HEALTH OR ANYTHING. CM SPOKE WITH HIS SISTER (PATIENT STATED OK TO TALK WITH HER) REGARDING HH, REHAB, ETC. PATIENTS SISTER WANTS TO WAIT AND SEE WHAT OUTCOME IS AND STATED IF REHAB IS NEEDED SHE WOULD RATHER HIM BE IN INPATIENT REHAB AT THIS HOSPITAL. PATIENT WILL REFUSE TO HAVE REHAB AT A HALFWAY SHE STATED. CM WILL CONTINUE TO FOLLOW PATIENT WITH DISCHARGE NEEDS AND PLANS. PCP DR. RAM IN [facility] ARCHIE GRAYSON (SISTER) [phone] Construction Electrician: Milana Dexter DCPIA - Discharge Planning Initial Assessment Updated by [email or web address]: Milana Dexter on 04/06/18 10:38 am * How many steps to enter\exit or inside your home? * PCP DR. RAM IN [facility] * Pharmacy [facility] IN [place] * Preadmission Environment Home with Family * ADLs Independent * Equipment Oxygen * Other Equipment PORTABLE O2, AND URINAL * List name and contact numbers for known caregivers / representatives who currently or will assist patient after discharge: ARCHIE GRAYSON (SISTER) [phone] * Verbal permission to speak to the caregivers and representatives has been obtained from the patient. Yes * Community resources currently utilized None * Additional services required to return to the preadmission environment? Yes * Can the patient safely return to the preadmission environment? Yes * Has this patient been hospitalized within the prior 30 days at any hospital? Yes Coverage Notice Reviewer: [email or web address] Chau Martinez Notice Issued Date-Time: 04/07/2018 15:15 Notice Type: IM Discharge Notice Notice Delivered To: Patient Relationship to Patient: Machine Shop Specialist Name: Delivery Method: HAND - Hand Delivered Cathie Days: Prior Verbal Notification: Recipient Understood Notice: Yes Recipient Signature: Yes Med Rec Note Co-signed by Attending: Coverage Notice Comment: Last DP export: 04/07/18 2:25 pm Patient Name: SUZETTE QUIÑONES Page 64201 at 1156 All edits/amendments must be made on the electronic document DICTATION DATE: 04/14/18 1156 PORTABLE TRACKMAN: WILBERT 04/14/18 1156 RPT#: [id number] DC DATE:04/07/18 STATUS: DIS IN [facility] [address] [place] [address] END OF REPORT
== END 2018-04-07 20:20 | DRG 175 ==
LOC: D.ER 12:38 → D.EDHOLD 18:14 → D.MS 18:14
PROVIDERS: Family Medicine; ADMIT Internal Medicine Nephrology
DX: I26.99 Other pulmonary embolism without acute cor pulmonale (principal); J18.9 Pneumonia, unspecified organism; J96.12 Chronic respiratory failure with hypercapnia; J96.11 Chronic respiratory failure with hypoxia; J90 Pleural effusion, not elsewhere classified; K86.1 Other chronic pancreatitis; E44.0 Moderate protein-calorie malnutrition; Z68.1 Body mass index [BMI] 19.9 or less, adult; J44.9 Chronic obstructive pulmonary disease, unspecified; I10 Essential (primary) hypertension; K21.9 Gastro-esophageal reflux disease without esophagitis; G62.9 Polyneuropathy, unspecified

== ENCOUNTER 2018-04-07 17:46 | Inpatient (IN) | payer MEDICARE ==
[~2018-04-07] VITALS: Ht 185.4 cm; Wt 63.5 kg
[~2018-04-07 17:46] MED LIST changes: +ALBUTEROL1.25 MG/3 INH; +ATROVENT 0.02%2.5 ML UPD; +BROVANA15 MCG/2 M INH; +DURAGESIC1 PATCH .7 TRANSDERM; +ELIQUIS5 MG PO; +FLOMAX0.4 MG PO; +MAXIPIME 2 GM/D52 G1 IV; +NORCO-10 PO; +Nicoderm [PBKC] TRANSDERM; +PERCOCET 5-3251 TAB PO; +PREDNISONE20 MG PO; +PULMICORT0.5 MG/21 UPD; +VANCOMYCIN 1 GM/1 G1 IV
[2018-04-08 00:34] VITALS: BP 161/86; BMI 18.5
--- NOTE | 2018-04-08 00:54 | NUR ---
ADMITTED TO ROOM 1111B FOR PHYSICAL REHAB AND SERVICES OF DR SPRAGUE. AWAKE AND ALERT. ARRIVED AT 192. SLIGHT SHORTNESS OF BREATH WITH O2 SAT AT 85% ON ROOM AIR. O2/4L ON PER NASAL CANNULA AND O2 INCREASED TO 93%. STATED HE HAD PAIN IN LUNG AREA THAT WAS REALLY BAD 12/11. TREATED FOR PAIN ORDERED. FENTYNAL PATCH IN PLACE TO LEFT UPPER BACK. GAIT IS SLIGHTLY SHUFFLED BUT CAN AMBULATE WITH MINIMAL ASSISTANCE. NOW RESTING IN BED. NO DISTRESS NOTED.
--- NOTE | 2018-04-08 03:11 | NUR ---
RESTING IN BED WITH NO DISTRESS NOTED. RESPIRATIONS UNLABORED. IV INTACT. ON ANTIBIOTICS WITH NO SIGNS OF ADVERSE REACTION. CALL LIGHT IN REACH.
--- NOTE | 2018-04-08 07:25 | NUR ---
SLEEPING ON SIDE.CL IN REACH.
--- NOTE | 2018-04-08 07:26 | NUR ---
PT LYING IN BED. EYES CLOSED. CL IN REACH. NO SIGNS OF DISTRESS OR PAIN. BED IN LOW POSITION. SIDE RAILS X2. RESP EVEN AND UNLABORED. WILL CONTINUE TO MONITOR.
[2018-04-08 08:00] VITALS: BP 148/77
[2018-04-08 10:54] VITALS: Ht 185.4 cm; Wt 63.5 kg
--- NOTE | 2018-04-08 11:05 | NUR ---
PT REFUSED OT THIS MORNING AND DID NOT WANT TO TAKE A SHOWER DUE TO BEING WEAK. VITALS WERE 114/68, PULSE 85, 96% ON 4 LITERS OF O2 VIA NC. PT STATES IT IS HARD TO BREATH. AC TURNED ON. PT REQUEST PAIN PILL BUT PT CAN NOT STAY AWAKE LONG ENOUGH AND COMPLAINS OF BEING DIZZY, THIS NURSE DOES NOT FEEL PT IS STABLE ENOUGH FOR PAIN MED. PT IS LYING IN BED WITH EYES CLOSED. TELEMETRY IS IN PLACE. BEAD WORKER SEWING REPORTED PT WAS 85 SR WITH SOME PAC'S. WILL CONTINUE TO MONITOR.
--- NOTE | 2018-04-08 12:33 | NUR ---
PT AWAKE AND ALERT EATING LUNCH. PAIN MED WILL BE GIVEN. VITALS WNL. WCTM
--- NOTE | 2018-04-08 14:36 | NUR ---
PT LYING IN BED. CL IN REACH. PT SISTER IN ROOM. DENIES NEEDS AT THIS TIME. PT IS REQUESTING MORE PAIN MEDS BUT WAS DISORIENTATED THIS MORNING AND DOES NOT REMEMBER THERAPY COMING AND TALKING TO HIM. WILL CALL [facility] AND ASK. PT TAKES NORCO 10 AND FENTYL PATCH. WCTM
--- NOTE | 2018-04-08 15:46 | NUR ---
PT SISTER IN ROOM. PT WAS GETTING BREATHING TREATMENT AND THE RESPIRATORY THERAPIST NOTICED O2 WAS OFF AND O2 SAT WAS 85%. SHE THEN GAVE BREATHING TREATMENT AND TURNED O2 BACK ON. PT THEN GOT UPSET AND THIS NURSE AND PHYSICAL THERAPIST WERE ABLE TO CALM PT DOWN. YNES.
--- NOTE | 2018-04-08 17:46 | NUR ---
PT SITTING UP ON SIDE OF BED EATING DINNER.CL IN REACH. PT DENIES NEEDS OR PAIN. WCTM
--- NOTE | 2018-04-08 19:10 | NUR ---
PATIENT IS RESTING IN HIS BED. DENIES ANY NEEDS. BED IS DOWN LOW WITH SIDE RAILS UP X2 AND CALL LIGHT IS IN REACH.
--- NOTE | 2018-04-08 21:24 | NUR ---
PATIENT IS RESTING IN HIS BED. HIS BED IS DOWN LOW WITH SIDE RAILS UP X2. CALL LIGHT IN REACH.
[2018-04-08 21:34] VITALS: BP 142/77
[2018-04-09 07:15] LABS: BASOPHILS 0.2 % (0-2); CALC OSMOLALITY 288 mosm/kg (275-300); CALCIUM 9.5 mg/dL (8.5-10.1); CARBON DIOXIDE 29.5 mmol/L (21.0-32.0); CHLORIDE - SERUM 103 mmol/L (98-107); CREATININE - SERUM 0.9 mg/dL (0.6-1.3); EOSINOPHILS 1.4 % (0-7); HEMOGLOBIN 14.6 g/dL (13.5-17.5); IMMATURE GRANULOCYTES 0.9 % (0-5); LYMPHOCYTES 11.8 % (15-50); MCH 29.2 pg (26.0-34.0); MCHC 32.4 g/dL (31.0-37.0); MEAN PLATELET VOLUME 9.3 fL (7.4-10.4); MONOCYTES 9.3 % (2-11); NEUTROPHILS 76.4 % (40-80); PLATELET COUNT 267 10x3/uL (130-400); POTASSIUM - SERUM 5.1 mmol/L (3.5-5.1); RDW 14.7 % (11.5-14.5); SODIUM 139 mmol/L (136-145); UREA NITROGEN 23 mg/dL (7-18); WBC 11.3 10x3/uL (4.8-10.8); eGFR NON AFRICAN AMERICAN 88 mL/min (90-120)
[2018-04-09 07:16] LABS: GLUCOSE 217 mg/dL (74-106)
--- NOTE | 2018-04-09 07:39 | NUR ---
ALERT. SITTING UP IN CHAIR. NO C/O PAIN. CL IN REACH.
[2018-04-09 08:00] VITALS: BP 151/87
--- NOTE | 2018-04-09 08:00 | NUR ---
PATIENT SITTING UP AT THE SIDE OF THE BED. CURSING AND THROWING UTENSILS AND SUGAR PACKAGES ON PLATE.
--- NOTE | 2018-04-09 10:06 | NUR ---
PATIENT RESTING IN BED. CALL LIGHT WITHIN REACH.
--- NOTE | 2018-04-09 16:13 | NUR ---
SPEECH THERAPIST IN WORKING WITH PATIENT AT THIS TIME.
--- NOTE | 2018-04-09 20:00 | NUR ---
THE PATIENT WAS LYING IN BED WHEN STAFF ENTERED HIS AREA. BED IN THE LOW POSITION WITH SIDERAILS X2 AND CALL LIGHT WITHIN REACH. PATIENT DEMONSTRATES APPROPRIATE USE OF A CALL LIGHT. THE PATIENT HAS NO QUESTIONS OR CONCERNS AT THIS TIME.
[2018-04-09 20:59] VITALS: BP 165/97
--- NOTE | 2018-04-10 04:02 | NUR ---
THE PATIENT IS AWAKE AND WATCHING TELEVISION. BED IN LO WPOSITION WITH SIDERAILS X2 AND CALL LIGHT WITHIN REACH. THE PATIENT HAS NO QUESTIONS OR CONCERNS AT THIS TIME.
--- NOTE | 2018-04-10 08:00 | NUR ---
PT PULLED IV OUT OF LEFT FA. PT PROVIDED WITH BREAKFAST AND PT STATES "THEY AREN'T GIVING ME WHAT I WANT." PT MENU FILLED OUT AND EVERYTHING PROVIDED. CALL [facility] WITH ADDITIONAL REQUESTS AND ITEMS PROVIDED.
[2018-04-10 08:05] VITALS: BP 146/73
--- NOTE | 2018-04-10 08:35 | NUR ---
PT REQ AND REC'D PRN PAIN MEDICATION WITH AM MEDICATIONS.
--- NOTE | 2018-04-10 10:46 | NUR ---
PT INSISTING ON GOING HOME TODAY. DR SPRAGUE NOTIFIED. DISCHARGE ORDERS OBTAINED.
[2018-04-10] MEDS ORDERED: CELEXA10 MG PO (12:40)
--- NOTE | 2018-04-10 15:20 | NUR ---
PATIENT DISCHARGING HOME TODAY WITH FAMILY. PATIENT DECLINES HOME HEALTH AT THIS TIME. [facility] WILL DELIVER A ROLAITOR WALKER TO PATIENT. DR. RAM 04/16/18 @ 1:30, DR. BUCHANAN 05/21/18 @ 11:45. DR. BUSCH NO APPOINTMENT NEEDED AT THIS TIME. PATIENT HAS REFUSED HOME HEALTH FORM HAS BEEN SIGNED AND COPY GIVEN TO PATIENT AND FILED IN CHART WITH [facility] FORMS SIGNED AND FILED IN CHART. DISCHARGE INSTRUCTIONS WITH FIM DATA FAXED TO PCP.
--- NOTE | 2018-04-10 15:50 | NUR ---
PT DISCAHRGE INSTRUCTIONS REVIEWED. PT REFUSES TO HAVE MEDICATIONS CALLED IN TO PHARMACY STATING HE HAS ENOUGH MEDICATION AT HOME. WRITTEN SCRIPT GIVEN FOR NORCO . PT ESCORTED OUT VIA WHEELCHAIR AND IS LEAVING WITH SISTER TO GO HOME AT THIS TIME. PT ALSO INSTRUCTED TO STOP BY [facility] FOR WALKER.
--- NOTE | 2018-04-16 12:19 | RHP ---
PATIENT: SUZETTE QUIÑONES MEDICAL RECORD: [id number] ACCOUNT: [id number] LOCATION:[facility] [address] : [birth year] ADMISSION DATE: 04/07/18 REHABILITATION HISTORY AND PHYSICAL EXAMINATION POST ADMISSION PHYSICIAN EXAMINATION DATE OF ADMISSION: 04/07/2018. ADMITTING DIAGNOSIS: Disuse myopathy. 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 He had pretty significant lung disease with pleural scarring. He is on chronic O2 at home. Dr. Yen is his administrative tech. During his last admission, he was seen for fpuil-ib-nadyihn pancreatitis. He reports a nonproductive cough, wheezing and shortness of breath. A CTA done on 04/02/2018 showed a pulmonary embolus in the medial right lobe segmental and subsegmental area of pulmonary arteries. He had diffuse pleural thickening throughout his right lung and involvement of the fissures, which remained concerning for malignancy given his appearance. He had marked peribronchial thickening as seen in the right lung, similar to previous exams. Pulmonary consult was deemed acute hypoxic respiratory failure. He failed antibiotics last week as an outpatient basis prior to admission. He was placed on Lovenox, vancomycin, and Merrem. He was placed on antitussives and also mucolytic agents, neb treatments, steroids. Cardiovascular consult was done for possible biopsy. Nutritional consult showed severe malnutrition of the chronic illness with observed subcutaneous fat and muscle loss. Cardiovascular consult deemed patient not really a candidate for a biopsy; however, the patient may be able to do this at some point if he gets somewhat stronger. Previously, he was living with his sister. He was independent with ADLs and mobility. He was O2 dependent. Currently, he is on continuous O2. He is also completing doses of IV antibiotics. He has had prolonged immobility, progressive generalized weakness. He has got weakness in both of his legs. He is very fatigued, has limited flexion and extension, proximal muscle strength is decreased. He is mod to max assist for ADLs, mod to max assist for sit to stand and bed to chair, but he does have fair balance. He definitely needs inpatient rehab to get back to his prior level of functioning. COMORBIDITIES: Include weight loss, severe subcutaneous fat and muscle loss, fatigue, weakness, cough, chest pain, dyspnea on exertion, hypoxia, hyperkalemia, emphysema, pneumonia, pleurisy, hypertension, hyperlipidemia, BPH, gastroesophageal reflux disease, depression, pleural mass. PAST MEDICAL HISTORY: Significant for cataracts. He has got a history of COPD, home O2 dependence, acid reflux, gastroesophageal reflux disease, and pancreatitis. PAST SURGICAL HISTORY: Includes tonsillectomy and adenoidectomy. ALLERGIES: No known drug allergies. CURRENT MEDICATIONS: Include a Duragesic patch 25 mcg daily, prednisone he is on a tapering dose. He is on Nicoderm patch 21 mg daily, Proscar 5 mg daily, aspirin chewable 81 mg daily. He is on Brovana 15 mcg b.i.d. He is on Eliquis HISTORY AND PHYSICAL [id number] ISHMAEL,SUZETTE 5 mg b.i.d. He is on Creon 3 capsules t.i.d. with meals, Requip 0.25 mg q.h.s., [place] 10/325 one tab q.4 hours p.r.n. He is on Neurontin 600 mg q.h.s. He is on Mucinex D 1 tab b.i.d., Atrovent updrafts q.4 hours p.r.n., DuoNeb updrafts q.4 hours p.r.n., Lopressor 100 mg b.i.d., Maxipime 2 g q.8 hours. He is on budesonide 0.5 mg b.i.d., Tessalon Perles 100 mg t.i.d. HABITS: Does have a history of tobacco use. FAMILY HISTORY: Noncontributory. SOCIAL HISTORY: The patient hopes to return back home and get back to his prior level of functioning, hopefully get back with his sister. REVIEW OF SYSTEMS: GENERAL: Does complain of weakness and fatigue. HEENT: Denies cold, cough, or congestion. CARDIOVASCULAR: Denies chest pain. PHYSICAL EXAMINATION: VITAL SIGNS: Stable, afebrile. GENERAL: Elderly gentleman in no acute distress, alert upon exam. HEENT: Normocephalic, atraumatic. Mucosa moist. NECK: Supple. No lymphadenopathy. LUNGS: Coarse breath sounds bilaterally. HEART: Regular rate and rhythm. He is somewhat tachycardic. ABDOMEN: Benign. EXTREMITIES: No clubbing, cyanosis or edema. NEUROLOGIC: He does have noted weakness. LABORATORY DATA: His white count was 8.9, H&H of 15 and 46, and platelet count is 274. His admit chemistry shows a sodium 137, potassium 4.3, BUN and creatinine of 21 and 0.8 and blood sugar is noted to be 126. Vancomycin trough is within normal limits. Admit UA did show some trace leukocyte esterase and a few bacteria. ASSESSMENT: This is a 72-year-old gentleman admitted to the rehab with a working diagnosis of disuse myopathy. The patient has potential to make improvement. We instituted the following multidisciplinary therapies including, but not limited to physical, occupational, respiratory, speech, nutritional services, prosthetics and orthotics. Given his complex medical condition and risk for more complications, rehabilitation services cannot be provided at a low level of care such as assisted facility. PLAN: 1. Admit to [facility] for an intensive inpatient therapy to include the following disciplines: A. Physical therapy to improve gait, all transfer skills, and bed mobility to a modified independent level. B. Occupational therapy to improve activities of daily living to a modified independent level. C. Case management to assist with discharge planning and placement options. D. Nutrition to assist with nutritional needs. E. Rehabilitation nursing to assist in monitoring the patient's underlying medical condition and to assist with any type of bowel and bladder management. 2. The patient's current medication and medical care will be continued. HISTORY AND PHYSICAL [id number] SUZETTE QUIÑONES 3. The patient will be placed on standard fall precautions. 4. The patient's estimated length of stay is approximately 7-10 days. 5. We will discuss the patient during care team staff meeting this week and will continue on current therapy. TRANSINT:[id number] Voice Confirmation ID: [id number] DOCUMENT ID: [id number] RON notes whether there has been none or any medical/functional change since admission: - No change since preadmission screen. RON attests patient continues to be appropriate for IRF: - Continues to be appropriate. CELESTE SPRAGUE MD at 1219 CC: [id number] DICTATION DATE: 04/08/18 08 MANAGER OF MAINTENANCE: 04/08/18 1003 DIS IN 04/10/18 [facility] [address] [place] [address]
== END 2018-04-10 15:52 | disposition home or self-care (01) | DRG 91 ==
LOC: D.REHAB 17:46
PROVIDERS: ADMIT Emergency Medicine
DX: G72.89 Other specified myopathies (principal); J18.9 Pneumonia, unspecified organism; E43 Unspecified severe protein-calorie malnutrition; J96.21 Acute and chronic respiratory failure with hypoxia; K85.90 Acute pancreatitis without necrosis or infection, unspecified; Z68.1 Body mass index [BMI] 19.9 or less, adult; Z99.81 Dependence on supplemental oxygen; R53.83 Other fatigue; R53.1 Weakness; R05 Cough; R07.9 Chest pain, unspecified; E87.5 Hyperkalemia; J43.9 Emphysema, unspecified; I10 Essential (primary) hypertension; E78.5 Hyperlipidemia, unspecified; N40.0 Benign prostatic hyperplasia without lower urinary tract symptoms; K21.9 Gastro-esophageal reflux disease without esophagitis; F32.9 Major depressive disorder, single episode, unspecified; G62.9 Polyneuropathy, unspecified